=== PATIENT | female | born 1940 | race Caucasian/White ===

== ENCOUNTER 2019-12-15 13:29 | Emergency (ER) | payer MEDICARE, SELFPAY ==
[2019-12-15] VITALS (7 sets, daily range): BP systolic 95–147; BP diastolic 41–75; PULSE 55–72; RESP 18–20; TEMP 36.5–36.6; O2SAT 96–99; BMI 31.1
--- NOTE | 2019-12-15 13:41 | CT_ITS ---
EXAMINATION: CT BRAIN, CT CERVICAL SPINE WITHOUT CONTRAST. LEFT WRIST X-RAY CLINICAL INFORMATION: Banuelos injury. Fall. COMPARISON: None TECHNIQUE: 5 mm thin axial and reformatted 2 mm thin coronal and sagittal images of brain were obtained. Subsequently axial 3 mm thin and reformatted 2 mm thin sagittal images of cervical spine were obtained. DL [id number] FINDINGS: Brain: There is no acute intra-axial, extra-axial bleed, masses, collection or midline shift. The lateral ventricles are symmetrical in size and configuration without enlargement. The yo to white matter differentiation is preserved. There is dystrophic bibasilar ganglia calcification. The yo to white matter differentiation is preserved. The lateral ventricles are symmetrical in size and not enlarged. There is dystrophic anterior falx calcification. Bone windows reveal no calvarial abnormality. There is no scalp soft tissue abnormality. Bilateral paranasal sinuses and mastoid air cells are well-aerated. Cervical spine: There is mild straightening of cervical lordosis. The vertebral heights and alignment are normal. There is loss of C3-C4, C4-C5, C5-C6 and C6-C7 disc heights with ventral spondylosis. No lytic or sclerotic process. There is a hypertrophic changes left C1-C2 facet joint. There is moderate left C3-C4, bilateral C4-C5, C5-C6 and C6-C7 narrowing of neural foramina from uncovertebral hypertrophic changes. There is bilateral mild facet joint arthropathy on the left at these disc levels. No visible acute fracture, dislocation or lytic process seen. The prevertebral soft tissues are normal. Left wrist: There is a impacted fracture distal radius with dorsal angulation no additional fractures seen. There is minimal dorsal wrist soft tissue swelling. CT/CT cervical spine wo con IMPRESSION: No acute intracranial process seen. Degenerative disc changes C3-C4 through C6-C7 disc levels. No visible acute fracture or dislocation seen in cervical spine. Neuroforaminal narrowing from uncovertebral hypertrophic changes as described above. Impacted dorsally angulated fracture distal radius with mild soft tissue swelling.
[2019-12-15] MEDS: fentaNYL citrate/PF 100 MCG/2 ML VIAL 50 MCG IVPUSH (14:00)
[2019-12-15] MEDS: 0.9 % Sodium Chloride 500 ML 999 ML IVCONT (14:00)
--- NOTE | 2019-12-15 14:02 | ED.FALL ---
HPI - Fall General Chief Complaint: Fall Stated Complaint: fall outside w/head strike & l wrist deform,+collr Time Seen by Provider: 12/15/19 13:33 Source: patient Mode of arrival: EMS Limitations: no limitations History of Present Illness HPI Narrative: patient comes to the emergency room complaining of left wrist pain. Patient states earlier today she was walking towards her car, she had a mechanical fall, landed with all her weight on an outstretched hand on the left side, patient states the initial impact was on her hand, then she landed on her butt, then her back and lastly her head. Patient states she mildly bumped her head on the floor, did not lose consciousness, no neck pain and headache MD complaint: fall Related Data Previous Rx's Medication Instructions Recorded oxycodone-acetaminophen [Percocet] 1 tab PO TID PRN #7 tab 12/15/19 Allergies Allergy/AdvReac Type Severity Reaction Status Date / Time Penicillins [PENICILLINS] Allergy Severe ANAPHYLAXIS Verified 12/15/19 13:45 latex [LATEX] Allergy Unknown UNKNOWN Verified 12/15/19 13:45 ibuprofen [From Motrin] Allergy Swelling Verified 12/15/19 13:45 Review of Systems Review of Systems: Constitutional : No Weight loss, No Fever, No Chills, No Night Sweats, No Fatigue, No Malaise ENT/Mouth : No Hearing loss, No Ear Pain, No Nasal Congestion, No Sinus Pain, No Hoarseness, No sore throat, No Rhinorrhea, No Swallowing Difficulty Eyes: No Eye Pain, No Swelling, No Redness, No Foreign Body, No Discharge, No Vision Changes Cardiovascular : No Chest Pain, No SOB, No Dyspnea on Exertion, No Orthopnea, No Edema, No Palpitations Respiratory : No Cough, No Sputum, No Wheezing, No Smoke Exposure, No Dyspnea Gastrointestinal : No Nausea, No Vomiting, No Diarrhea, No Constipation, No abdominal Pain, No Hematochezia, No Melena Genitourinary : no irregular bleeding, No Dysuria, No Urinary Frequency, No Hematuria, No Urinary Incontinence, No Urgency, No Flank Pain, No Urinary Flow Changes, No Hesitancy Musculoskeletal : complaining of 10/10 pain, wrist pain left side Skin : No Skin Lesions, No rash Neuro : No Weakness, No Numbness, No Paresthesias, No Loss of Consciousness, No Dizziness, No Headache Psych : No Anxiety/Panic, No Depression, No SI/HI/AH/VH, No Social Issues, Heme/Lymph: No Bruising, No Bleeding,No Lymphadenopathy Endocrine : No Polyuria, No Polydipsia, No Temperature Intolerance [facility] Past Medical History Medical History Arthritis HTN (hypertension) Psoriasis Surgical History H/O shoulder surgery History of right knee joint replacement Social History Social History Alcohol intake: never Smoked in Last 30 Days: No Use of substances other than those prescribed or required for medical reasons: No Advance Directives: No Advance Directives Information Provided: No Physical Exam Vital Signs: Vital Signs: Vital Signs Temp Pulse Resp BP Pulse Ox 12/15/19 16:02 97.8 F 63 18 139/57 L 96 12/15/19 16:00 18 12/15/19 14:00 18 12/15/19 13:35 97.7 F 55 20 95/41 L 96 Body Mass Index 31.1 Appearance: Alert. Oriented X3. No acute distress. Eyes: Pupils equal, round and reactive to light. ENT: Pharynx normal. Neck: Normal inspection. Neck supple. No lymph nodes noted. No crepitus CVS: Normal heart rate and rhythm. Pulses normal. Normal S1 and S2 Respiratory: No respiratory distress. Breath sounds normal. No Wheezing. No rales Abdomen: Soft and nontender. No rigidity. No distention. good BS x4 Skin: Skin warm and dry. Normal skin color. Normal skin turgor. Extremities: patient has a deformity in the left wrist, mild swelling, pain to palpation. Neuro: Oriented X 3. No motor deficit. No sensory deficit. Moving all extermities. No slurred speech. Course Course Course Narrative: I discuss the x-ray with Dr. Ramon, at this time the fracture does not seem to be surgical, but with reduction we will try to improve the alignment. patient's wrist was infiltrated with 2% lidocaine, 4 hematoma block, successful block, pain greatly reduced. The left wrist was reduced Patient's pain is controlled now, I discussed with the patient getting a case management and PT consult for short-term rehab, patient declined, patient requesting a case management phone call in the morning. Patient states she lives alone but she has self sufficient, has good neighbors who take care of her. - Fall Lab Data Result diagrams: 12/15/19 14:33 12/15/19 14:33 Labs: Lab Results 12/15/19 12/15/19 12/15/19 Range/Units 14:33 14:33 14:33 WBC 9.2 (4.8-10.8) X10*3/uL RBC 3.77 L (4.20-5.50) X10*6/uL Hgb 12.6 (12.0-16.0) g/dl Hct 37.0 (37-47) % MCV 98.1 H (80-98) fL MCH 33.4 H (27.0-33.0) pg MCHC 34.1 (31.0-35.0) g/dl RDW 11.9 (11.0-16.0) % Plt Count 301 (160-400) X10*3/uL MPV 11.0 (9.4-12.3) fL Immature Gran % (Auto) 0.9 H (0.0-0.4) % Neut % (Auto) 60.0 (45-73) % Lymph % (Auto) 27.5 (20-40) % [place] % (Auto) 7.2 (2-11) % Eos % (Auto) 3.4 (0-4) % Baso % (Auto) 1.0 (0-2) % Lymph # (Auto) 2.5 (1.2-4.9) X10*3/uL [place] # (Auto) 0.7 (0.1-1.2) X10*3/uL Eos # (Auto) 0.3 (0.0-0.4) X10*3/uL Baso # (Auto) 0.1 (0.0-0.2) X10*3/uL Abs Immat Gran (auto) 0.08 H (0.00-0.03) X10*3/uL Absolute Neuts (auto) 5.5 (2.0-8.3) X10*3/uL Absolute Nucleated RBC 0.000 (0.0-0.012) X10*3/uL Nucleated RBC % (auto) 0.0 (0.0-0.2) /100WBC Hold Blue Top SEE NOTE Sodium 142 (135-145) mmol/L Potassium 4.5 (3.3-5.1) mmol/l Chloride 105 (96-108) mmol/L Carbon Dioxide 25 (22-29) mmol/L Anion Gap 17 (12-20) BUN 13 (9-16) mg/dL Creatinine 0.76 (0.5-1.4) mg/dL Estim Creat Clear Calc 59.6 Estimated GFR > 60 Random Glucose 164 H (60-115) mg/dL Calcium 9.2 (8.4-10.2) mg/dL Total Bilirubin 0.6 (0.0-1.0) mg/dL AST 20 (5-31) U/L ALT 17 (0-31) U/L Alkaline Phosphatase 58 (39-117) U/L Total Protein 6.9 (6.5-8.0) g/dL Albumin 4.1 (3.5-5.0) g/dL Imaging Data Head and neck CT, left wrist x-ray: Radiologist's impression: No acute intracranial process seen. Degenerative disc changes C3-C4 through C6-C7 disc levels. No visible acute fracture or dislocation seen in cervical spine. Neuroforaminal narrowing from uncovertebral hypertrophic changes as described above. Impacted dorsally angulated fracture distal radius with mild soft tissue swelling. wrist x-ray post reduction, alignment since improved, radiology read pending. Elbow x-ray are no acute fractures seen, radiology read pending radiology impression: 1. The wrist fracture is now in cast. Dorsal angulation of the distal radial metaphyseal fracture is slightly improved but still persists. 2. Degenerative changes involving the radiohumeral joint. Discharge Plan Discharge Clinical Impression: Fracture of wrist Qualifiers: Encounter type: initial encounter Fracture type: closed Laterality: left Qualified Code(s): S62.102A - Fracture of unspecified carpal bone, left wrist, initial encounter for closed fracture Patient Disposition: Home, Self-Care Instructions: Wrist Fracture in Adults (ED) Additional Instructions: please call Orthopedics Monday to schedule an appointment Prescriptions: New oxycodone-acetaminophen [Percocet] 5-325 mg tablet 1 tab PO TID PRN (Reason: pain) Qty: 7 RF: 0
--- NOTE | 2019-12-15 14:08 | PC.NURSE ---
patient a&ox3, iv inserted, medicated per order pt to ct scan
[2019-12-15 14:40] LABS: MANUAL DIFF FLAG NO
[2019-12-15 14:48] LABS: Basophils Absolute Auto 0.1 X10*3/uL (0.0-0.2); Eosinophils Absolute Auto 0.3 X10*3/uL (0.0-0.4); Eosinophils Percent Auto 3.4 % (0-4); Hemoglobin 12.6 g/dl (12.0-16.0); Imm Gran Abs Auto 0.08 X10*3/uL (0.00-0.03); Imm Gran Pct Auto 0.9 % (0.0-0.4); Lymphocytes Absolute Auto 2.5 X10*3/uL (1.2-4.9); Lymphocytes Percent Auto 27.5 % (20-40); Mean Corpuscular HGB Conc 34.1 g/dl (31.0-35.0); Mean Corpuscular Hemoglobin 33.4 pg (27.0-33.0); Mean Corpuscular Volume 98.1 fL (80-98); Monocytes Absolute Auto 0.7 X10*3/uL (0.1-1.2); Monocytes Percent Auto 7.2 % (2-11); Neutrophils Absolute Auto 5.5 X10*3/uL (2.0-8.3); Platelet Count 301 X10*3/uL (160-400); Red Blood Count 3.77 X10*6/uL (4.20-5.50); Red Cell Distribution Width 11.9 % (11.0-16.0); White Blood Count 9.2 X10*3/uL (4.8-10.8)
[2019-12-15 15:16] LABS: Alanine Aminotransferase 17 U/L (0-31); Albumin Level 4.1 g/dL (3.5-5.0); Alkaline Phosphatase 58 U/L (39-117); Anion Gap 17 (12-20); Aspartate Amino Transferase 20 U/L (5-31); Bilirubin Total 0.6 mg/dL (0.0-1.0); Blood Urea Nitrogen 13 mg/dL (9-16); Calcium 9.2 mg/dL (8.4-10.2); Carbon Dioxide 25 mmol/L (22-29); Chloride 105 mmol/L (96-108); Creatinine Clr Calc Pharmacy 59.6; Estimated Glomerular Filt Rate > 60; Glucose Random 164 mg/dL (60-115); Potassium 4.5 mmol/l (3.3-5.1); Sodium 142 mmol/L (135-145); Total Protein 6.9 g/dL (6.5-8.0)
[2019-12-15] MEDS: 0.9 % Sodium Chloride 1,000 ML 999 ML IVCONT (15:20)
[2019-12-15] MEDS: Lidocaine HCl 2 % MPF 5 ML VIAL 20 ML INFILTRATI (15:20)
--- NOTE | 2019-12-15 15:32 | PC.NURSE ---
lidocaine injected by physician into patients wrist/arm, reduction was performed, patient being splinted by tech, patient has tolerated procedure well. ivf running per order.
--- NOTE | 2019-12-15 15:34 | XR_ITS ---
EXAMINATION: LEFT WRIST AND ELBOW CLINICAL INFORMATION: Status post reduction COMPARISON: Radiographs earlier today TECHNIQUE: 3 views left elbow, 2 views left wrist FINDINGS: Wrist: Again seen is the transverse fracture through the distal radial metaphysis there is slight impaction and mild dorsal angulation,. The degree of angulation is improved when compared to the prior study. Some detail is obscured by the plaster cast. No other fractures are seen. Elbow some marked degenerative changes are present at the radial humeral joint. There are moderate osteophytes along with some osteophytes arising from the distal humerus. No fractures are seen. XR/XR wrist LT min 3V IMPRESSION: 1. The wrist fracture is now in cast. Dorsal angulation of the distal radial metaphyseal fracture is slightly improved but still persists. 2. Degenerative changes involving the radiohumeral joint.
--- NOTE | 2019-12-15 15:35 | XR_ITS ---
EXAMINATION: LEFT WRIST AND ELBOW CLINICAL INFORMATION: Status post reduction COMPARISON: Radiographs earlier today TECHNIQUE: 3 views left elbow, 2 views left wrist FINDINGS: Wrist: Again seen is the transverse fracture through the distal radial metaphysis there is slight impaction and mild dorsal angulation,. The degree of angulation is improved when compared to the prior study. Some detail is obscured by the plaster cast. No other fractures are seen. Elbow some marked degenerative changes are present at the radial humeral joint. There are moderate osteophytes along with some osteophytes arising from the distal humerus. No fractures are seen. XR/XR elbow LT min 3V IMPRESSION: 1. The wrist fracture is now in cast. Dorsal angulation of the distal radial metaphyseal fracture is slightly improved but still persists. 2. Degenerative changes involving the radiohumeral joint.
[2019-12-15] MEDS: HYDROmorphone HCl 1 MG/ML SYRINGE 0.6 MG IVPUSH (16:00)
--- NOTE | 2019-12-15 18:49 | PC.NURSE ---
patient a&ox3, vss, assisted patient ambulating to bathroom, patient needs assistance with clothing to use bathroom, patient continues to have pain in LUE- provider notified, patient is able to move fingers they are pink/warm, pt med req was updated- pt states there is 1 other pill she takes but is unable to remember it at this time, notified provider to put in diet as well, vss, will continue to monitor.
[2019-12-15] MEDS: oxyCODONE HCl Immed Release 5 MG TABLET PO (18:55)
--- NOTE | 2019-12-15 18:56 | PC.NURSE ---
patient medicated for pain per order
--- NOTE | 2019-12-15 20:41 | PC.NURSE ---
patient a&ox3 vss pt states her pain continues to be 10/10 in lue and that the po medication didnt touch it, will notify provider
[2019-12-15] MEDS: HYDROmorphone HCl 1 MG/ML SYRINGE 0.5 MG IVPUSH (21:08)
--- NOTE | 2019-12-15 21:08 | PC.NURSE ---
patiet medicated for 10/10 lue pain
[2019-12-15] MEDS: diphenhydrAMINE HCL 50 MG/ML VIAL IVPUSH (23:04)
--- NOTE | 2019-12-15 23:10 | PC.NURSE ---
Pt medicated with 50mg of benedryl for sleep. Pt was requesting Ambien and was educated that the provider felt uncomfortable ordering ambien after she had had dilaudid. Pt verbalized understanding.
[2019-12-16 02:00] VITALS: RESP 17
--- NOTE | 2019-12-16 05:38 | PC.NURSE ---
Pt noted to be sleeping at this time, resp reg and even. Skin pwd, NAD. Awaiting PT eval this morning for possible rehab placement. Has been up to ambulate to bathroom with steady gait and 1 assist at times. Pt requires assistance pulling down her pants and pulling them back up.
[2019-12-16 05:40] VITALS: RESP 16
[2019-12-16] MEDS: Acetaminophen 325 MG TABLET 650 MG PO (08:00)
[2019-12-16 08:01] VITALS: BP 145/68; PULSE 74
[2019-12-16] MEDS: lisinopriL 10 MG TABLET PO (08:01)
--- NOTE | 2019-12-16 08:02 | PC.NURSE ---
PT WAS EVAL BY PT SHE IS ABLE T O GET OOB AND AMBULATE WITH A STEADY SAFE GAIT FOR HOUSEHOLD DISTANCES PT EATING AND DRINKING SHE WAS MEDICATED FOR PAIN
[2019-12-16 08:04] VITALS: BP 145/68; PULSE 75; RESP 18; O2SAT 97
--- NOTE | 2019-12-16 09:26 | PC.NURSE ---
PT SLEEPING QUIETLY
--- NOTE | 2019-12-16 10:03 | MHC.CM.ED ---
Received case management consult overnight. Patient came to ER due to fall. Found to have left wrist fracture. Physical therapy eval completed. Home therapy is recommended. Met with patient in regards to d/c planning. Patient lives alone, ambulates indepedendently and has services through [facility]. Patient has been active with [facility] in the past and is agreeable to referral there. Referral made via [employer]. Face to face completed and signed. Patient has no tranpsortation home at this time and is agreeable to private pay chair van. Action chair van ordered through [employer] for next available. Patient, Dr Marquis and Ander PAUL aware. Continue to monitor for d/c needs.
--- NOTE | 2019-12-16 10:10 | PC.NURSE ---
sling placed left arm
== END 2019-12-16 10:37 | disposition home or self-care (01) ==
PROVIDERS: Emergency Provider Emergency Medicine; PCP Internal Medicine
DX: S62.102A Fracture of unspecified carpal bone, left wrist, initial encounter for closed fracture (principal); M25.532 Pain in left wrist; W01.0XXA Fall on same level from slipping, tripping and stumbling without subsequent striking against object, initial encounter; Y93.01 Activity, walking, marching and hiking; Y92.009 Unspecified place in unspecified non-institutional (private) residence as the place of occurrence of the external cause; Y99.9 Unspecified external cause status
CPT/HCPCS: 36415; 70450; 72125; 73080; 73110; 80053; 85025; 96361; 96372; 96374; 96375; 96376; 97161; 99284; 99285; J1170; J1200; J3010

== ENCOUNTER → 2019-12-19 09:41 | Outpatient (BNVA) | payer MEDICARE, SELFPAY | PROVIDERS: PCP Internal Medicine; Visit Provider Physician Assistant | DX: S52.502D Unspecified fracture of the lower end of left radius, subsequent encounter for closed fracture with routine healing (principal) | CPT/HCPCS: 99202 ==

== ENCOUNTER 2019-12-24 08:54 | Day surgery (SDC) | payer MEDICARE, SELFPAY ==
--- NOTE | 2019-12-23 08:31 | HO.ANESPROP2 ---
Documented by User: Dinah Mirlande 12/23/19 08:32 HPI - Anesthesia Eval Consult details Narrative: 79yp F for Radius Distal Fracture ORIF, left PMFSH Past Medical History Medical History Arthritis HTN (hypertension) Psoriasis Surgical History Surgical History H/O shoulder surgery History of right knee joint replacement Social History Social History Alcohol intake: never Smoking Status: Never smoker Second Hand Smoke Exposure: No Use of substances other than those prescribed or required for medical reasons: No Advance Directives: No Advance Directives Information Provided: No Advance Directives on File: No Current occupational status: retired Current occupation: right handed Meds Allergies Allergy/AdvReac Type Severity Reaction Status Date / Time Penicillins [PENICILLINS] Allergy Severe ANAPHYLAXIS Verified 12/15/19 13:45 latex [LATEX] Allergy Unknown UNKNOWN Verified 12/15/19 13:45 ibuprofen [From Motrin] Allergy Swelling Verified 12/15/19 13:45 Home Medications Medication Instructions Recorded Confirmed Type lisinopril 10 mg PO DAILY 12/15/19 12/15/19 History paroxetine HCl [Paxil] 5 mg PO DAILY 12/15/19 12/15/19 History Exam Exam Date and Time: December 23, 2019 0831 Pertinent Lab Results Pertinent Lab Results: Laboratory Tests 12/15/19 12/15/19 14:33 14:33 WBC 9.2 Hgb 12.6 Hct 37.0 Plt Count 301 Sodium 142 Potassium 4.5 Chloride 105 BUN 13 Creatinine 0.76 Assessment and Plan Assessment Anesthesia Assessment: Chart Reviewed Documented by User: Sergio Washburn MD 12/24/19 13:13 PMFSH Past Medical History Medical History Arthritis HTN (hypertension) Psoriasis Surgical History Surgical History H/O shoulder surgery History of right knee joint replacement Social History Social History Alcohol intake: never Smoking Status: Never smoker Second Hand Smoke Exposure: No Use of substances other than those prescribed or required for medical reasons: No Advance Directives: No Advance Directives Information Provided: No Advance Directives on File: No Current occupational status: retired Current occupation: right handed Meds Allergies Allergy/AdvReac Type Severity Reaction Status Date / Time Penicillins [PENICILLINS] Allergy Severe ANAPHYLAXIS Verified 12/15/19 13:45 latex [LATEX] Allergy Unknown UNKNOWN Verified 12/15/19 13:45 ibuprofen [From Motrin] Allergy Swelling Verified 12/15/19 13:45 Home Medications Medication Instructions Recorded Confirmed Type lisinopril 10 mg PO DAILY 12/15/19 12/15/19 History paroxetine HCl [Paxil] 5 mg PO DAILY 12/15/19 12/15/19 History Exam Airway Mallampati Class: III TM Dist: >3cm Neck ROM: Full Denture: Upper and Lower Loose/Missing/Broken Teeth: No Heart: rrr, pvcs Lungs: nl Other: ao Assessment and Plan Assessment Anesthesia Assessment: Anesthesia Plan Discussed, PAT Visit and Chart Reviewed Final Anesthetic Review NPO: Yes ASA Class: III Final Preanesthetic Review: No Changes in Pt Med Stat, Meds/Allgs Chart Reviewed, Consent Obtained/Reviewed and Anes Risks/Benef Reviewed Patient Risk: Intermediate Procedure Risk: Intermediate Anesthetic Plan Anesthetic Plan: GA and Regional Block Disposition: Standard PACU
[2019-12-23 12:55] VITALS: BMI 31.1
[2019-12-24] VITALS (12 sets, daily range): BP systolic 143–167; BP diastolic 54–67; PULSE 75–88; RESP 16–18; TEMP 36.9–37.2; O2SAT 92–100
--- NOTE | 2019-12-24 09:18 | MHC.SHP ---
Pre-Procedural Eval Section A The patient is an INPATIENT: No Changes since office visit: Yes Patient answered all questions; No Cold of Flu in the past 2 weeks, No New Medical Problems and No Changes in Medication The History & Physical has been completed within 30 days and I have reviewed it.: Yes Section B Chief Complaint: left radial fx Allergies: Allergies Allergy/AdvReac Type Severity Reaction Status Date / Time Penicillins [PENICILLINS] Allergy Severe ANAPHYLAXIS Verified 12/15/19 13:45 latex [LATEX] Allergy Unknown UNKNOWN Verified 12/15/19 13:45 ibuprofen [From Motrin] Allergy Swelling Verified 12/15/19 13:45 Plan Patient has been examined and remains a candidate for the planned procedure
[2019-12-24] MEDS: Lactated Ringers 1,000 ML 100 ML IVCONT (10:34)
[2019-12-24] MEDS: Clindamycin Phosphate/D5W 600 MG/50 ML PIGGYBACK 100 MG IV (10:45)
--- NOTE | 2019-12-24 12:13 | FL_ITS ---
EXAMINATION: XR FLUOROSCOPY WITH IMAGES CLINICAL INFORMATION: Distal radius fracture COMPARISON: Previous x-ray 12/15/2019 TECHNIQUE: Fluoroscopy performed by Dr. Ramon. Fluoroscopy time: 0.4 minutes DAP: 0.9 mGycm2 Images: 2 FINDINGS: Fluoroscopic guidance was provided for ORIF of left distal radius fracture. There is a new volar plate and multiple screws transfixing the fracture with improved anatomic alignment. FL/FL guidance in OR IMPRESSION: Fluoroscopic guidance for ORIF of left distal radius fracture.
--- NOTE | 2019-12-24 13:28 | PM.OP ---
Brief Operative Note Date of procedure: 12/24/19 Pre-op diagnosis: left distal radius fracture Post-op diagnosis: same Procedure: ORIF left distal raidius fracture Implants: chavo Surgeon: Irwin Ramon MD Anesthesia: MAC and regional Estimated blood loss (mL): 10 Tourniquet time (min): 33 IV fluids (mL): 700 Pathology: none sent Condition: stable Disposition: PACU
[2019-12-24] MEDS: HYDROmorphone HCl 0.5 MG/0.5 ML SYRINGE 0.25 MG IVPUSH (14:13)
[2019-12-24] MEDS: Acetaminophen 325 MG TABLET 650 MG PO (14:46)
[2019-12-24] MEDS: oxyCODONE HCl Immed Release 5 MG TABLET PO (14:47)
--- NOTE | 2019-12-25 16:29 | OP_ITS ---
SURGEON: Irwin Ramon MD INDICATIONS: This is a healthy 79-year-old woman with a dorsally tilted and dorsally comminuted distal radius fracture, consented to undergo ORIF. PREOPERATIVE DIAGNOSIS: Left distal radius fracture. POSTOPERATIVE DIAGNOSIS: Left distal radius fracture. PROCEDURE PERFORMED: Open reduction internal fixation left distal radius. ESTIMATED BLOOD LOSS: COMPLICATIONS: None known. ANESTHESIA: LMA and regional. ASSISTANTS: SPECIMENS: BLOOD LOSS: 10 mL. PROCEDURE IN DETAIL: The patient was brought to the operating room, placed supine on the operative table, prepped and draped in standard sterile fashion. Time-out was called to identify proper site, proper procedure, proper surgeon. IV antibiotics per weight was administered. I began by insufflating tourniquet to 250 mmHg. I then made a standard incision over FCR. The FCR sheath was incised proximally. FCR was retracted ulnar and FPL sheath was incised. FPL was swept ulnar and pronator quadratus was dissected off the distal radius bluntly. I then visualized the extra-articular distal radius fracture. I used a [place] and was able to recreate a neutral tilt. The radial styloid K-wire was placed to provisionally hold this reduction and a narrow 3-hole distal radius locking plate was selected. Biplanar fluoroscopy was used to position the plate and screws were placed using standard AO technique and biplanar fluoroscopy. Once I was happy with the position of the styloid and radial screws, I removed the radial styloid K-wire and then placed my proximal cortical screw to reapproximate the tilt and to compress the plate to the bone. Once this was done, I was happy with the neutral tilt and the restorationist of height and inclination. I filled the remaining proximal nonlocking screws and then distal locking screws. Again, biplanar fluoroscopy was used to confirm fracture reduction and plate position. Once I was happy with this, all instrumentation was removed. Copious irrigation was performed. Layered closure was performed with skin glue and a volar splint. The patient was then extubated, brought to recovery room in stable condition. There were no known complications. FLUIDS: 700. TOURNIQUET TIME: 33 minutes. COOPERATIVE EXTENSION AGENT: ADRIANA Teixeira. Irwin Ramon MD NE/MODL / [id number]
== END 2019-12-24 16:07 | disposition home or self-care (01) ==
PROVIDERS: PCP Internal Medicine; Visit Provider Orthopaedic Surgery
PROC: (CPT 25607; principal; 2019-12-24 10:50)
DX: S52.502A Unspecified fracture of the lower end of left radius, initial encounter for closed fracture (principal); W01.0XXA Fall on same level from slipping, tripping and stumbling without subsequent striking against object, initial encounter; Y93.89 Activity, other specified; Y92.9 Unspecified place or not applicable; Y99.2 Volunteer activity; I10 Essential (primary) hypertension; M19.90 Unspecified osteoarthritis, unspecified site; L40.9 Psoriasis, unspecified; Z79.899 Other long term (current) drug therapy; Z96.651 Presence of right artificial knee joint; Z88.0 Allergy status to penicillin; Z88.8 Allergy status to other drugs, medicaments and biological substances
CPT/HCPCS: 25607; C1713; J1170; J3010

== ENCOUNTER → 2020-01-03 10:26 | Outpatient (BNVA) | payer MEDICARE, SELFPAY | PROVIDERS: PCP Internal Medicine; Visit Provider Physician Assistant | DX: S52.502D Unspecified fracture of the lower end of left radius, subsequent encounter for closed fracture with routine healing (principal) | CPT/HCPCS: 29075; 99212 ==

== ENCOUNTER 2020-01-13 10:38 | Outpatient (REF) | payer MEDICARE, SELFPAY ==
--- NOTE | 2020-01-13 10:39 | XR_ITS ---
EXAMINATION: XR WRIST, LEFT CLINICAL INFORMATION: Fracture COMPARISON: Previous x-ray most recent 12/15/2019 intraoperative fluoroscopic images 12/24/2019 TECHNIQUE: PA, lateral, and oblique views of the left wrist. FINDINGS: There is new orthopedic hardware with plate and screws transfixing the left distal radius fracture. Alignment is anatomic. Fracture line is still seen. There is arthritis at the first LONG-TERM joint. Bones appear osteopenic. There is a soft tissue swelling of the volar wrist and distal forearm. XR/XR wrist LT min 3V IMPRESSION: ORIF of left distal radius fracture.
== END 2020-01-13 10:39 | disposition home or self-care (01) ==
LOC: HO.HOSX 10:38
PROVIDERS: Visit Provider Physician Assistant
DX: S52.502D Unspecified fracture of the lower end of left radius, subsequent encounter for closed fracture with routine healing (principal)
CPT/HCPCS: 73110; 99212

== ENCOUNTER 2020-02-06 10:35 | Outpatient (REF) | payer MEDICARE, SELFPAY | END 2020-02-06 10:36 | disposition home or self-care (01) | LOC: HO.HOSX 10:35 | PROVIDERS: Visit Provider Physician Assistant | DX: Z13.89 Encounter for screening for other disorder (principal) ==

== ENCOUNTER 2020-02-10 08:39 | Outpatient (REF) | payer MEDICARE, SELFPAY ==
--- NOTE | 2020-02-10 09:55 | XR_ITS ---
EXAMINATION: XR WRIST, LEFT CLINICAL INFORMATION: Fracture distal left radius. COMPARISON: 01/13/2020 and 12/15/2019 TECHNIQUE: PA, lateral, and oblique views of the left wrist. FINDINGS: There is stable appearance in alignment status post placement of sideplate and screws for fixation of distal left radial fracture. There is neutral angulation of the radiocarpal joint. There appears to be some progression in healing with the fracture line still evident but showing signs of bony union. No dislocation is evident. There is degenerative change of the 1st carpometacarpal joint. XR/XR wrist LT min 3V IMPRESSION: Stable alignment with evidence for some progressive healing status post internal fixation of left distal radial fracture.
== END 2020-02-10 08:40 | disposition home or self-care (01) ==
LOC: HO.HOSX 08:39
PROVIDERS: Visit Provider Physician Assistant
DX: S52.502D Unspecified fracture of the lower end of left radius, subsequent encounter for closed fracture with routine healing (principal)
CPT/HCPCS: 73110; 99212

== ENCOUNTER 2020-02-17 10:00 | Outpatient (RCR) | payer MEDICARE, SELFPAY ==
--- NOTE | 2020-01-24 14:28 | MHC.OT.OEV ---
[address] [phone] F: [phone] Occupational Therapy Evaluation Diagnosis: Left Distal Radius Fx, post-op ORIF Date of Onset: 12/14/19 Date of Surgery: 12/25/19 Attending Provider: Mihai Giraldo PA-C Prescribed Treatment: Eval and Treat MD Follow Up Appointment: 01/04/20 History of Current Condition: Hilaria was looking in the back seat of her car, took a step back and fell backwards in the parking lot. Was brought to the ED and found to have left distal radius fracture. She was placed in splint and underwent ORIF w/ Dr Ramon 12/25/19. Cast has been removed today (01/13/20) and now in prefab removal orthosis. Significant Medical History: Precautions/Contraindications: Two weeks post-op ORIF Patient Goals: Decrease pain, return use of left hand Hand Dominance: Right Observations: Wearing pre-bairon orthsis QuickDASH Score: 43 Prior Level of Function and Occupation Self Care, Employment, Leisure: Independent, , retired, enjoys traveling w/ her son Living Situation, Family and/or Social Support: Lives alone, son lives nearby Current Level of Function and Occupation Self Care, Employment, Leisure: Difficulty w/ bimanual tasks or gripping objects Sleep: Lousy Driving: Driving short distances Vision: WFL, glasses Balance: Pain Assessment Pain Score: 3 Pain Scale Used: Numeric (0 - 10) Pain Location and Description: 3/10 resting pain 9/10 sharp pain, left wrist and thumb base Aggravating Factors: Gripping, sleeping Alleviating Factors: Codene w/ Tylenol as needed daily Skin and Soft Tissue Assessment Skin and Soft Tissue: Swelling Other Comments: Left forearm dry Steri-strips intact Nerve assessment Ulnar Nerve: WFL Median Nerve: WFL Radial Nerve: WFL Comments: Sensory Assessment Temperature: WFL Light Touch: WFL Proprioception: WFL Vibration: Comments: Edema Assessment Upper Extremity: Left Impaired Lower Extremity: Comments: R wrist 14.5 cm L wrist 16.0 cm Dexterity Assessment Dexterity: Left Impaired Comments: Nine Hole Peg R 25 sec L Special Tests Comments: AROM(PROM) Strength Cervical Cervical Flexion: Cervical Extension: Cervical Lateral Flexion: Cervical Rotation: Comments: Shoulder Flexion: B/L 0-90 w/ stiffness (hx of shoulder surgery) Extension: Abduction: Internal Rotation: External Rotation: Comments: Flexion: Extension: Abduction: Internal Rotation: External Rotation: Comments: Elbow Flexion: Extension: Pronation: Supination: Comments: Flexion: Extension: Pronation: R 80 L 55 Supination: R 85 L 35 Comments: Wrist Flexion: R 55 L 28 Extension: R 68 L 50 Ulnar Deviation: R 60 L 30 Radial Deviation: R 10 L 10 Comments: Flexion: Extension: Ulnar Deviation: Radial Deviation: Comments: Thumb Thumb CMC Flexion: Thumb MCP Flexion: Thumb IP Flexion: Radial Abduction: Palmar Abduction: [place] (K[place]andji 0-10): R 9 L 3 Comments: Digits Index MCP: PIP: DIP: Long MCP: PIP: DIP: Ring MCP: PIP: DIP: Small MCP: PIP: DIP: Comments: Full tip-palm B/L'ly, intrinsic tightness w/ left hook fist Gross Grasp: R 35 lb L NT Lateral Pinch: Two-Point Pinch: Three-Jaw [place]: Comments: Patient Education Primary Language: Bulgarian Steward/Stewardess Dining Room Required: No Current Knowledge: Understands information with skills for self-management Teaching Method: Demonstration Handouts Verbal Education Needs Identified on Evaluation: ADL's Disease Information Equipment Use Exercise Pain Safety How did patient/family demonstrate learning? Patient demonstrates Patient verbalizes Barriers to Learning: None Readiness for Learning: Accepting Who was educated? Patient Comments: Plan of Care Assessment: Hilaria presents about two weeks s/p ORIF of left distal radius after FOOSH injury one month ago. She has been placed in prefab orthosis and is able to do light activities w/ hand, but has difficulty w/ sleeping, bimanual activities and gripping w/ left hand. She will benefit from cont'd therapy services for optimal gains in ROM, strength and functional use of hand, while also focusing on pain and edema management. STG Duration: 2 weeks Short Term Goals: Ind w/ HEP Ind w/ scar massage Left wrist flex 40 degrees Left wrist ext 60 degrees Left wrist supination 50 degrees Left gross grasp 15lb LTG Duration: 6 weeks Master Fire Control Technician Goals: QuickDASH score <25 pts Pain free at rest <3/10 pain w/ moderate daily use Wrist ROM within 5 degrees of right Gross grasp >25lb Frequency and Duration: The patient will be seen 2-3 x/wk for 4-6 weeks Treatment Plan: Therapeutic Exercise Therapeutic Activity Home Exercise Program Splinting Patient Education Desensitization/Sensory Re-ed Edema Control ADL Training NMES MHP Cold Packs Joint Mobilization Soft Tissue Mobilization Kinesiotaping Electronically Signed By: ZUHAIR ANSARI OT CHT CLT Reviewed/agree with student documentation: N/A Therapist: Please sign and return to therapist, Thank you for your referral.
== END 2020-04-07 07:44 | disposition home or self-care (01) ==
LOC: HO.OT 10:00
PROVIDERS: Visit Provider Physician Assistant
DX: S52.502D Unspecified fracture of the lower end of left radius, subsequent encounter for closed fracture with routine healing (principal)
CPT/HCPCS: 97110; 97165; 97530; 97760

== ENCOUNTER → 2020-03-16 13:48 | Outpatient (BNVA) | payer MEDICARE, SELFPAY | PROVIDERS: Visit Provider Physician Assistant | DX: S52.502D Unspecified fracture of the lower end of left radius, subsequent encounter for closed fracture with routine healing (principal) | CPT/HCPCS: 99212 ==

== ENCOUNTER 2020-07-31 09:53 | Outpatient (REF) | payer MEDICARE, SELFPAY ==
--- NOTE | 2020-07-31 11:11 | MHC.AU.ANR ---
Adult Audiological Evaluation Date of Visit: 07/31/20 Reason for Appointment: Audiological evaluation due to concern for decreased hearing. Patient notes that her hearing has gradually been decreasing. She notes particular difficulty in background noise and feels people mumble. Does patient feel they have a hearing loss?: Yes If Yes, Which Ear?: Both Ears When Was Hearing Difficulty First Noticed?: a few years ago Has hearing been tested previously?: No Previous Hearing Test Results: Hearing Handicap Inventory: HHIE SCORE: 26 Based on HHIE score, patient has: Severe perceived hearing handicap Ear History: Recent Ear Infections: Infection in left ear in March 2020 History of Ear Wax Buildup: Both Ears Medical History: Medical History: High Blood Pressure Otoscopy: Right Ear: Significant wax build up removed with a lighted curette without incident Left Ear: Significant wax build up removed with a lighted curette without incident Tympanometry: Tympanometry performed due to: To determine if cerumen blockage is fully occluding canal(s) Right Ear: Normal Middle Ear System (Type A) Left Ear: Normal Middle Ear System (Type A) Hearing Evaluation: Transducer(s) Used: Insert Earphones, Bone Conduction Method: Conventional Audiometry Stimuli Used: Pure Tones Right Ear: Description of Hearing: Mild sloping to moderately severe sensorineural hearing loss from 250-8000 Hz. Left Ear: Description of Hearing: Mild sloping to moderately severe sensorineural hearing loss from 250-8000 Hz. Speech Recognition Threshold (SRT): Method Used: Monitored Live Voice Stimuli Used: Spondee Words Right Ear: 35 dBHL Left Ear: 30 dBHL Word Discrimination: Method: Recorded Lists Word Lists Used: NU-6 Right Ear: 92% at 75 dBHL Left Ear: 100% at 70 dBHL Recommendations: Audiological re-evaluation in one year. Trial with amplification is recommended. Briefly discussed hearing aids. Advised patient that she should contact her health insurance company to see if she has any hearing aid benefits. Recommended that she schedule a hearing aid evaluation if she decides she would like to pursue hearing aids through our clinic. Diagnosis: Primary Diagnosis: H90.3 Bilateral Sensorineural Hearing Loss Services Performed: Comprehensive Audiological Evaluation (CPT 08664) Tympanometry (CPT 07690) Signature: Provider: Krysta Ascencio, CCC-A
== END 2020-07-31 09:54 | disposition home or self-care (01) ==
LOC: HO.SH 09:53
PROVIDERS: Visit Provider Physician Assistant Medical
DX: H90.3 Sensorineural hearing loss, bilateral (principal)
CPT/HCPCS: 92557; 92567

== ENCOUNTER 2020-07-31 10:54 | Outpatient (REF) | payer SELFPAY | END 2020-07-31 10:55 | disposition home or self-care (01) | LOC: HO.HAP 10:54 | PROVIDERS: Visit Provider Internal Medicine | DX: H90.3 Sensorineural hearing loss, bilateral (principal); H61.23 Impacted cerumen, bilateral | CPT/HCPCS: 92700 ==

== ENCOUNTER → 2021-11-09 08:05 | Outpatient (BNVA) | payer MEDICARE, SELFPAY | PROVIDERS: PCP Physician Assistant Medical; Visit Provider Internal Medicine Rheumatology | DX: L40.50 Arthropathic psoriasis, unspecified (principal); M81.0 Age-related osteoporosis without current pathological fracture; M47.816 Spondylosis without myelopathy or radiculopathy, lumbar region; M17.12 Unilateral primary osteoarthritis, left knee | CPT/HCPCS: 20610; 99212 ==

== ENCOUNTER 2022-01-11 11:30 | Outpatient (REF) | payer MEDICARE, SELFPAY ==
[2022-01-11 12:44] LABS: Alanine Aminotransferase 14 U/L (0-31); Albumin Level 4.4 g/dL (3.5-5.0); Alkaline Phosphatase 66 U/L (39-117); Anion Gap 15 (12-20); Aspartate Amino Transferase 18 U/L (5-31); Bilirubin Total 0.7 mg/dL (0.0-1.0); Blood Urea Nitrogen 12 mg/dL (9-16); Calcium 9.4 mg/dL (8.4-10.2); Carbon Dioxide 27 mmol/L (22-29); Chloride 103 mmol/L (96-108); Estimated Glomerular Filt Rate > 60; Glucose Random 184 mg/dL (60-115); Potassium 4.3 mmol/L (3.3-5.1); Sodium 141 mmol/L (135-145); Total Protein 7.4 g/dL (6.5-8.0)
[2022-01-17 15:12] LABS: Vitamin D 25-OH, D2 <4 ng/mL; Vitamin D 25-OH, D3 35 ng/mL; Vitamin D 25-OH, Total 35 ng/mL (30-100)
== END 2022-01-11 11:31 | disposition home or self-care (01) ==
LOC: HO.LAB 11:30
PROVIDERS: PCP Physician Assistant Medical; Visit Provider Internal Medicine Rheumatology
DX: M81.0 Age-related osteoporosis without current pathological fracture (principal)
CPT/HCPCS: 36415; 80053; 82306

== ENCOUNTER 2022-02-28 10:16 | Outpatient (REF) | payer MEDICARE, SELFPAY ==
[2022-02-28 11:35] LABS: Anion Gap 12 (12-20); Blood Urea Nitrogen 12 mg/dL (9-16); Calcium 9.8 mg/dL (8.4-10.2); Carbon Dioxide 28 mmol/L (22-29); Chloride 103 mmol/L (96-108); Estimated Glomerular Filt Rate > 60; Glucose Random 132 mg/dL (60-115); Potassium 4.4 mmol/L (3.3-5.1); Sodium 139 mmol/L (135-145)
== END 2022-02-28 10:17 | disposition home or self-care (01) ==
LOC: HO.LAB 10:16
PROVIDERS: Visit Provider Internal Medicine Rheumatology
DX: M81.0 Age-related osteoporosis without current pathological fracture (principal); I10 Essential (primary) hypertension
CPT/HCPCS: 36415; 80048

== ENCOUNTER 2022-03-01 10:01 | Outpatient (REF) | payer MEDICARE, SELFPAY | END 2022-03-01 10:02 | disposition home or self-care (01) | LOC: HO.MDS 10:01 | PROVIDERS: Visit Provider Internal Medicine Rheumatology | DX: M81.0 Age-related osteoporosis without current pathological fracture (principal) | CPT/HCPCS: 96365 ==

== ENCOUNTER 2023-01-10 09:58 | Outpatient (AMB) | payer MEDICARE, SELFPAY ==
--- NOTE | 2023-01-10 10:00 | A.OFFVIS_ITS ---
Intake Vital Signs 01/10/23 10:01 Height 5 ft 3 in Weight 161 lb 13.109 oz BMI 28.7 BP 142/90 H Blood Pressure Location Rt brachial Position Sitting Pulse 96 Pulse Source Pulse Oximeter Temp 97 F Temp Source Skin Pulse Oximetry (%) 99 Oxygen Delivery Method Room Air Intake Visit Reasons: PSA Intake Note: Patient presents today to follow up on PsA. Last seen by Dr. Cummings on 11/09/21. Last Reclast infusion Feb, 2022. Due in February. Concerned that Reclast is not lasting enough in her system. c/o neck pain, worsening joint pains c/o right buttocks pain x 2 months, then radiated to left side and down the leg. Web Specialist Required: No Accompanied by: Self / Same As Patient Allergies Penicillins [PENICILLINS] Allergy (Severe, Verified 01/28/22 11:26) ANAPHYLAXIS latex [LATEX] Allergy (Unknown, Verified 01/28/22 11:26) UNKNOWN ibuprofen [From Motrin] Allergy (Verified 01/28/22 11:26) Swelling Medication List - Last Reconciled 01/10/23 by Joseph Cummings MD amlodipine 5 mg PO DAILY azelastine 0.05% 1 drp ophthalmic (eye) BID PRN fluticasone propionate 50 mcg/actuation sprays intranasal lisinopril 30 mg PO DAILY oxycodone-acetaminophen 10-325 mg 1 tab PO QID PRN paroxetine HCl 20 mg PO DAILY secukinumab mg subcut Q4W triamcinolone acetonide 0.025% appl topical zoledronic senh-kodpujfu-xuxzl 5 mg/100 mL 5 mg intravenously once; to be given at outpatient infusion, [facility] zolpidem 5 mg PO BEDTIME PRN HPI HPI Comments History of Present Illness Details The patient returns for evaluation of her osteoporosis, psoriasis, and osteoarthritis. She remains on Cosentyx through Dermatology for her psoriasis. She continues with various joint pains including the lower back radiating to the right buttock and thigh. That pain is worse with prolonged sitting or standing. She had received 3 doses of zoledronic acid over the last 4 years. There have been no recent fractures. She is having some left knee pain as well that was helped with a corticosteroid injection given last fall. [facility] Medical History Arthritis HTN (hypertension) Psoriasis Surgical History History of right knee joint replacement H/O shoulder surgery Household Members Other:: lives alone Housing: Apartment Do you presently have visiting nurse or other home services: Yes (once a week) Alcohol intake: current Alcohol intake frequency: holidays/special occasions only Alcohol type: hard liquor Patient Tobacco Use Status: Never used Tobacco e-Cigarette/Vaping Use: Never Used Second Hand Smoke Exposure: No service: No Current occupational status: retired Current occupation: right handed Review of Systems Const Details: Negative for appetite change, weight change, fever, chills, malaise and fatigue Eyes Details: Negative for vision change, dry eyes,headaches and dizziness ENT Details: Negative for hearing change, tinnitus, oral ulcer, nose bleeds and oral dryness. Card Details: Negative chest pain, edema and syncope Resp Details: Negative for SOB, cough and wheezing GI Details: Negative indigestion/heartburn, nausea, abdominal pain, bowel changes, diarrhea, constipation and bloody stool. Skin/Breast Details: Negative for itching, rash, hives, Raynaud's symptoms, sun sensitivity, and skin cancer Endo Details: Negative for polyuria and polydypsia Garry/Lymph Details: Negative for excessive bruising or bleeding. Physical Exam Vital Signs: Last Vital Signs Temp 97 F 01/10/23 10:01 Pulse 96 01/10/23 10:01 BP 142/90 H 01/10/23 10:01 Pulse Ox 99 01/10/23 10:01 Oxygen Delivery Method Room Air 01/10/23 10:01 BMI result Body Mass Index 28.7 APPEARANCE: Patient in no acute distress EXTREMITIES: No edema, no calf tenderness, normal peripheral pulses. NEURO: Oriented and alert x3. No focal weakness. Reflexes symmetric. Gait normal. SKIN: There may be a few actinic keratoses evident on the forearms but no active psoriasis is seen. The nails in the toes and fingers look normal. JOINT EXAM:.?? Cervical Spine: Mild pain with lateral flexion at 10 degrees of rotation at 30 degrees to either side. There is some cervical muscle tenderness. Thoracic Spine:.? No scoliosis.? No tenderness on palpation. Lumbar Spine:.? Alignment normal.? Mild pain with extremes of flexion or extension. Straight leg raising on the right causes some buttock and thigh pain at about 45 degrees. No tenderness. Chest Wall:.? No tenderness, swelling, increased warmth or erythema. Hands: There is pain-free range of motion of the joints. This some slight bony enlargement at the PIP joints but these are minimally tender. There is no thenar atrophy or sensory loss.? Normal pain-free range of motion without tenderness, swelling, increased warmth or erythema. Wrists: Right: Slight tenderness over the dorsum of the wrist with some mild pain at 60 degrees flexion extension but no redness or warmth. Left: Mild pain with flexion extension is 75 degrees. No swelling or tenderness. Elbows:. Normal pain-free range of motion without tenderness, swelling, increased warmth or erythema. Shoulders:.??Right: Mild pain with abduction at 90 degrees or any attempt at internal or external rotation. Passive motion is limited to about 135 degrees of abduction. There is some abductor weakness but no adenopathy or swelling. Mild anterior and posterior tenderness. Left: Mild pain with abduction 75 degrees. Passive motion is limited to about 100 degrees. There is mild anterior tenderness without abductor weakness but no adenopathy, weakness, swelling, increased warmth or erythema. Hips:? Full range of motion without pain. Hip bursa:.? No tenderness. Knees:.? Right: She has good range of motion without pain and a well-healed anterior scar from her knee replacement. There is no areas of tenderness or swelling.? Left: There is valgus deformity and slight pain with extremes of flexion or extension. There is mild patellofemoral crepitus, mild to moderate medial tenderness without redness or effusion. There is no popliteal swelling or tenderness. Ankles: Left: There is some valgus deformity at the ankle with some mild medial tenderness in questionable soft tissue swelling although some of this could be related to the valgus deformity. She has mild pain with extremes of inversion and eversion but AP motion is pain-free. There is no redness or warmth.? Right: Normal pain-free range of motion without tenderness, swelling, increased warmth or erythema. Feet: Left: There is flatfoot deformity in valgus in the foot. There is mild tenderness at the 1st MTP joint with moderate hallux valgus deformity and mild tenderness. There is also some slight tenderness over the 5th toe where she has a hammertoe deformity. No soft tissue swelling, redness or warmth. Right: Hallux valgus deformity and mild tenderness at the 1st MTP joint elsewhere there is normal pain-free range of motion without tenderness, swelling, increased warmth or erythema. Tender points:? No tenderness to digital palpation at the occiput, trapezius, second rib, lateral epicondyle, knees, greater trochanter and gluteal area bilaterally. ? Results Reviewed Results Reviewed: Laboratory Tests 12/15/19 01/11/22 02/28/22 14:33 11:38 10:31 Hgb 12.6 Creatinine 0.67 25-Hydroxy Vitamin D3 35 Assessment & Plan Assessment & Plan (1) Osteoarthritis of left knee: Code(s): M17.12 - Unilateral primary osteoarthritis, left knee (2) Osteoporosis: Comment: Started Fosamax 04/2018 - gi side effects so it was stopped Zoledronic acid 09/2018; 03/2020; 02/2022 Code(s): M81.0 - Age-related osteoporosis without current pathological fracture (3) Psoriasis: Comment: Humira - stopped - ? due to infection Tremfya - not effective for psoriasis Cosentyx sinjce 07/2018 Code(s): L40.9 - Psoriasis, unspecified (4) Osteoarthritis of lumbar spine: Code(s): M47.816 - Spondylosis without myelopathy or radiculopathy, lumbar region Plan The patient today has no signs of active psoriatic skin lesion. Similarly there is no sign of an active arthropathy related to psoriasis. It would appear that the psoriatic disease is well controlled with the Cosentyx. Her remaining pains I think are from osteoarthritis, primarily involving the left knee and lumbar spine. She has been referred to PT by orthopedics at [facility]. She is encouraged to attend PT and continue with exercise as tolerated. We will arrange follow-up at about 6 months. A repeat DEXA may be helpful at that time to assess her response to the zoledronic acid. Coding Level of Care Code Est Pt Level 3 (13160) Diagnoses Osteoarthritis of left knee M17.12 Osteoporosis M81.0 Psoriasis L40.9 Osteoarthritis of lumbar spine M47.816
[2023-01-10 10:01] VITALS: BP 142/90; PULSE 96; TEMP 36.1; O2SAT 99; BMI 28.7
== END 2023-01-10 10:37 | disposition home or self-care (01) ==
PROVIDERS: PCP Physician Assistant Medical; Visit Provider Internal Medicine Rheumatology
DX: M17.12 Unilateral primary osteoarthritis, left knee (principal); M81.0 Age-related osteoporosis without current pathological fracture; L40.9 Psoriasis, unspecified; M47.816 Spondylosis without myelopathy or radiculopathy, lumbar region
CPT/HCPCS: 99213

== ENCOUNTER → 2023-01-10 09:58 | Outpatient (BNVA) | payer MEDICARE, SELFPAY | PROVIDERS: PCP Physician Assistant Medical; Visit Provider Internal Medicine Rheumatology | DX: M17.12 Unilateral primary osteoarthritis, left knee (principal); M81.0 Age-related osteoporosis without current pathological fracture; M47.816 Spondylosis without myelopathy or radiculopathy, lumbar region; L40.9 Psoriasis, unspecified | CPT/HCPCS: 99212 ==

== ENCOUNTER 2023-07-07 10:34 | Outpatient (REF) | payer MEDICARE, SELFPAY ==
[2023-07-07 10:51] LABS: MANUAL DIFF FLAG NO
[2023-07-07 12:02] LABS: Basophils Absolute Auto 0.1 X10*3/uL (0.0-0.2); Basophils Percent Auto 1.9 % (0-2); Eosinophils Absolute Auto 0.5 X10*3/uL (0.0-0.4); Hematocrit 39.7 % (37.0-47.0); Hemoglobin 13.6 g/dl (12.0-16.0); Imm Gran Abs Auto 0.02 X10*3/uL (0.00-0.03); Imm Gran Pct Auto 0.3 % (0.0-0.4); Lymphocytes Absolute Auto 1.9 X10*3/uL (1.2-4.9); Mean Corpuscular HGB Conc 34.3 g/dl (31.0-35.0); Mean Corpuscular Hemoglobin 34.1 pg (27.0-33.0); Mean Corpuscular Volume 99.5 fL (80.0-98.0); Monocytes Absolute Auto 0.5 X10*3/uL (0.1-1.2); Neutrophils Absolute Auto 3.5 x10*3/uL (2.0-8.3); Neutrophils Percent Auto 54.8 % (45-73); Platelet Count 295 X10*3/uL (160-400); Red Blood Count 3.99 X10*6/uL (4.20-5.50); Red Cell Distribution Width 11.9 % (11.0-16.0); White Blood Count 6.5 X10*3/uL (4.8-10.8)
[2023-07-07 12:31] LABS: Alanine Aminotransferase 11 U/L (0-31); Albumin Level 4.3 g/dL (3.5-5.0); Alkaline Phosphatase 76 U/L (39-117); Anion Gap 16 (12-20); Aspartate Amino Transferase 19 U/L (5-31); Bilirubin Total 0.6 mg/dL (0.0-1.0); Blood Urea Nitrogen 8 mg/dL (9-16); C Reactive Protein 0.48 mg/dL (< or = 0.50); Calcium 9.4 mg/dL (8.4-10.2); Carbon Dioxide 25 mmol/L (22-29); Chloride 105 mmol/L (96-108); Estimated Glomerular Filt Rate > 60; Glucose Random 140 mg/dL (60-115); Sodium 142 mmol/L (135-145); Total Protein 7.5 g/dL (6.5-8.0)
[2023-07-07 12:50] LABS: Erythrocyte Sedimentation Rate 20 MM/HR (0-20)
[2023-07-12 18:14] LABS: Vitamin D 25-OH, D2 <4 ng/mL; Vitamin D 25-OH, D3 31 ng/mL; Vitamin D 25-OH, Total 31 ng/mL (30-100)
== END 2023-07-07 10:35 | disposition home or self-care (01) ==
LOC: HO.LAB 10:34
PROVIDERS: Absent Provider Nurse Practitioner Family; PCP Physician Assistant Medical; Visit Provider Internal Medicine Rheumatology
DX: M81.0 Age-related osteoporosis without current pathological fracture (principal); M17.12 Unilateral primary osteoarthritis, left knee
CPT/HCPCS: 36415; 80053; 82306; 85025; 85652; 86140

== ENCOUNTER 2023-07-18 09:53 | Outpatient (AMB) | payer MEDICARE, SELFPAY ==
--- NOTE | 2023-07-18 09:59 | MHC.OFFVIS ---
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 Cummings, presents today for follow up. Patient reports she had a fall about a month ago. Seen at [facility]. Reports multiple fractures. Accompanied by: Self / Same As Patient Allergies Penicillins [PENICILLINS] Allergy (Severe, Verified 07/18/23 10:07) ANAPHYLAXIS latex [LATEX] Allergy (Unknown, Verified 07/18/23 10:07) UNKNOWN ibuprofen [From Motrin] Allergy (Verified 07/18/23 10:07) Swelling HPI Comments Details: Ms. Beckham 83 yoF returns for evaluation of her osteoporosis, psoriasis, and osteoarthritis. She currently off Cosentyx through Dermatology for her psoriasis. She continues with various joint pains including the lower back radiating to the right buttock and thigh. That pain is worse with prolonged sitting or standing. She had received 3 doses of zoledronic acid over the last 4 years. She is having some left knee pain as well that was helped with a corticosteroid injection given fall 2021. --fell 1 month ago, frx face, ribs, and bruises; aggravated knee pain. went to [facility] --[facility] --The last 2 weeks - Developed hives from trial of new med for PsO - Sotyktu (deucravacitinib). Ws treated with Prednisone - last does this am. ?Sotyktu (deucravacitinib) - treats psoriasis by selectively targeting the immune system by inhibiting tyrosine kinase 2 (TYK2), a member of the Janus kinase (DANYEL) family. Sotyktu is approved for the treatment of adults with [id number] plaque psoriasis who are candidates for systemic therapy or phototherapy. --hx of gout - knee was aspirated at [facility] per patient and leonardtals were seen in the aspirate. They wanted to take her to the OR but never due - no septic arthritis. She says her gout flare are very very few. Takes Tyelenol or other OTC for flares. 01/10/2023: Dr. Cummings The patient returns for evaluation of her osteoporosis, psoriasis, and osteoarthritis. She remains on Cosentyx through Dermatology for her psoriasis. She continues with various joint pains including the lower back radiating to the right buttock and thigh. That pain is worse with prolonged sitting or standing. She had received 3 doses of zoledronic acid over the last 4 years. There have been no recent fractures. She is having some left knee pain as well that was helped with a corticosteroid injection given last fall. [facility] Medical History Arthritis HTN (hypertension) Psoriasis Surgical History History of right knee joint replacement H/O shoulder surgery Social History Household Members Other:: lives alone Housing: Apartment Do you presently have visiting nurse or other home services: Yes (once a week) Alcohol intake: current Alcohol intake frequency: holidays/special occasions only Alcohol type: hard liquor Patient Tobacco Use Status: Never used Tobacco e-Cigarette/Vaping Use: Never Used Second Hand Smoke Exposure: No service: No Current occupational status: retired Current occupation: right handed Review of Systems Const All systems reviewed & are unremarkable except as noted in HPI and below Physical Exam Vital Signs: Last Vital Signs Pulse 115 H 07/18/23 10:06 BP 150/100 H 07/18/23 10:06 Pulse Ox 97 07/18/23 10:06 BMI result Body Mass Index 28.6 APPEARANCE: Patient in no acute distress EXTREMITIES: No edema, no calf tenderness, normal peripheral pulses. NEURO: Oriented and alert x3. No focal weakness. Reflexes symmetric. Gait normal. SKIN: There may be a few actinic keratoses evident on the forearms but no active psoriasis is seen. The nails in the toes and fingers look normal. JOINT EXAM:.?? Cervical Spine: Mild pain with lateral flexion at 10 degrees of rotation at 30 degrees to either side. There is some cervical muscle tenderness. Thoracic Spine:.? No scoliosis.? No tenderness on palpation. Lumbar Spine:.? Alignment normal.? Mild pain with extremes of flexion or extension. Straight leg raising on the right causes some buttock and thigh pain at about 45 degrees. No tenderness. Chest Wall:.? No tenderness, swelling, increased warmth or erythema. Hands: There is pain-free range of motion of the joints. This some slight bony enlargement at the PIP joints but these are minimally tender. There is no thenar atrophy or sensory loss.? Normal pain-free range of motion without tenderness, swelling, increased warmth or erythema. Wrists: Right: Slight tenderness over the dorsum of the wrist with some mild pain at 60 degrees flexion extension but no redness or warmth. Left: Mild pain with flexion extension is 75 degrees. No swelling or tenderness. Elbows:. Normal pain-free range of motion without tenderness, swelling, increased warmth or erythema. Shoulders:.??Right: Mild pain with abduction at 90 degrees or any attempt at internal or external rotation. Passive motion is limited to about 135 degrees of abduction. There is some abductor weakness but no adenopathy or swelling. Mild anterior and posterior tenderness. Left: Mild pain with abduction 75 degrees. Passive motion is limited to about 100 degrees. There is mild anterior tenderness without abductor weakness but no adenopathy, weakness, swelling, increased warmth or erythema. Hips:? Full range of motion without pain. Hip bursa:.? No tenderness. Knees:.? Right: She has good range of motion without pain and a well-healed anterior scar from her knee replacement. There is no areas of tenderness or swelling.? Left: There is valgus deformity and slight pain with extremes of flexion or extension. There is mild patellofemoral crepitus, mild to moderate medial tenderness without redness or effusion. There is no popliteal swelling or tenderness. Ankles: Left: There is some valgus deformity at the ankle with some mild medial tenderness in questionable soft tissue swelling although some of this could be related to the valgus deformity. She has mild pain with extremes of inversion and eversion but AP motion is pain-free. There is no redness or warmth.? Right: Normal pain-free range of motion without tenderness, swelling, increased warmth or erythema. Feet: Left: There is flatfoot deformity in valgus in the foot. There is mild tenderness at the 1st MTP joint with moderate hallux valgus deformity and mild tenderness. There is also some slight tenderness over the 5th toe where she has a hammertoe deformity. No soft tissue swelling, redness or warmth. Right: Hallux valgus deformity and mild tenderness at the 1st MTP joint elsewhere there is normal pain-free range of motion without tenderness, swelling, increased warmth or erythema. Tender points:? No tenderness to digital palpation at the occiput, trapezius, second rib, lateral epicondyle, knees, greater trochanter and gluteal area bilaterally. ? Results Reviewed Results Reviewed: Laboratory Tests 07/07/23 10:50 WBC 6.5 RBC 3.99 L Hgb 13.6 Hct 39.7 Eos % (Auto) 7.0 H ESR 20 Creatinine 0.68 AST 19 ALT 11 Alkaline Phosphatase 76 C-Reactive Protein 0.48 25-OH Vitamin D Total 31 Laboratory Tests 07/07/23 10:50 Calcium 9.4 Total Bilirubin 0.6 Total Protein 7.5 Assessment & Plan Assessment & Plan (1) Osteoarthritis of left knee: Code(s): M17.12 - Unilateral primary osteoarthritis, left knee Category: Medical Qualifiers: Osteoarthritis type: primary Qualified Code(s): M17.12 - Unilateral primary osteoarthritis, left knee (2) Osteoporosis: Comment: Started Fosamax 04/2018 - gi side effects so it was stopped Zoledronic acid 09/2018; 03/2020; 02/2022 Code(s): M81.0 - Age-related osteoporosis without current pathological fracture Category: Medical Qualifiers: Osteoporosis type: age-related Presence of current pathological fracture: with current pathological fracture Encounter type: sequela Qualified Code(s): M80.00XS - Age-related osteoporosis with current pathological fracture, unspecified site, sequela (3) Psoriasis: Comment: Humira - stopped - ? due to infection Tremfya - not effective for psoriasis Cosentyx since 07/2018 Code(s): L40.9 - Psoriasis, unspecified Category: Medical (4) Osteoarthritis of lumbar spine: Code(s): M47.816 - Spondylosis without myelopathy or radiculopathy, lumbar region Category: Medical Qualifiers: Spinal osteoarthritis complication: with radiculopathy Qualified Code(s): M47.26 - Other spondylosis with radiculopathy, lumbar region (5) History of gout: Code(s): Z87.39 - Personal history of other diseases of the musculoskeletal system and connective tissue Category: Medical Plan #Psorias: The patient today has no signs of active psoriatic skin lesion. Similarly there is no sign of an active arthropathy related to psoriasis. It would appear that the psoriatic disease is well controlled by DERMS regimen. She will continue to follow-uo with DERM. #OA (knee and Spine): She does have remaining pains I think are from osteoarthritis, primarily involving the left knee and lumbar spine. She has done PT referred by orthopedics at [place]. She is encouraged to continue with exercise as tolerated. Will obtain records from [facility] that evidences fluid aspirate with chystals. #Gout: The patient reports a history of gout. She is not on a routine med and appears not to require one at this point. Will obtain updated Uric acid levels. #Osteoporosis: I ordered the Bone Density. Patient will verify date of last one to make sure it is at least 1 yr and 1 day due. A repeat DEXA may be helpful at that time to assess her response to the zoledronic acid. Per patient the last Bone density showed minimal improvement. We will consider to do Prolia if not much improvement on updated DEXA since 02/2022 Reclast. We will schedule that appointment after the Bone density is obtained. Recent labs are favourable to treatment. Mild elevation in her calcium - she has since stopped supplements. She continues with Vitamin D. We will arrange follow-up at about 6 months after first treatment I spent 30 min reviewing history, evaluating patient and documenting. Orders: Orders Uric Acid Today Z87.39 - Personal history of other diseases of the musculoskeletal system and connective tissue XR DEXA axial skeleton Today M80.00XS - Age-related osteoporosis with current pathological fracture, unspecified site, sequela Coding Level of Care Code Est Pt Level 4 (35557) Complex EM visit Add On G2211 Diagnoses Primary osteoarthritis of left knee M17.12 Osteoarthritis type: primary Age-related osteoporosis with current pathological fracture, sequela M80.00XS Osteoporosis type: age-related Presence of current pathological fracture: with current pathological fracture Encounter type: sequela Psoriasis L40.9 Osteoarthritis of spine with radiculopathy, lumbar region M47.26 Spinal osteoarthritis complication: with radiculopathy History of gout Z87.39
[2023-07-18 10:06] VITALS: BP 150/100; PULSE 115; O2SAT 97; BMI 28.6
== END 2023-07-18 10:35 | disposition home or self-care (01) ==
LOC: HO.RHE 09:53
PROVIDERS: PCP Physician Assistant Medical; Visit Provider Nurse Practitioner Family
DX: M17.12 Unilateral primary osteoarthritis, left knee (principal); M80.00XS Age-related osteoporosis with current pathological fracture, unspecified site, sequela; L40.9 Psoriasis, unspecified; M47.26 Other spondylosis with radiculopathy, lumbar region; Z87.39 Personal history of other diseases of the musculoskeletal system and connective tissue
CPT/HCPCS: 99214; G2211

== ENCOUNTER → 2023-07-18 09:53 | Outpatient (BNVA) | payer MEDICARE, SELFPAY | PROVIDERS: PCP Physician Assistant Medical; Visit Provider Nurse Practitioner Family | DX: M17.12 Unilateral primary osteoarthritis, left knee (principal); M80.00XS Age-related osteoporosis with current pathological fracture, unspecified site, sequela; M47.26 Other spondylosis with radiculopathy, lumbar region; L40.9 Psoriasis, unspecified; Z87.39 Personal history of other diseases of the musculoskeletal system and connective tissue | CPT/HCPCS: 99212 ==

== ENCOUNTER 2023-09-07 09:27 | Outpatient (REF) | payer MEDICARE, SELFPAY ==
--- NOTE | ~2023-09-07 | MM_ITS ---
EXAMINATION: BONE DENSITOMETRY CLINICAL INDICATION: Age-related osteoporosis with current pathological fracture. COMPARISON: This is the patient's baseline examination. TECHNIQUE: Using a [employer] DXA System (software version: 13.1) manufactured by [employer], dual-energy x-ray absorptiometry was performed of the lumbar spine and left hip. The images are of good technical quality. Summary results are attached. FINDINGS: LEFT FEMUR, NECK: BMD 0.728 g/cm2, Z-score -0.2, T-score -2.2, osteopenia. LEFT FEMUR, TOTAL: BMD 0.771 g/cm2, Z-score 0.0, T-score -1.9, osteopenia. AP SPINE L1-L4: BMD 1.164 g/cm2, Z-score 1.5, T-score -0.1, normal. IDENTIFIED RISK FACTORS: Menopause, low calcium intake, history of fracture (adult). HISTORY OF FRACTURE: Other. MEDICATIONS: Calcium supplements or multivitamin, vitamin D. MM/XR DEXA axial skeleton IMPRESSION: 1. DIAGNOSIS: Osteopenia based on the lowest T-score value of -2.2 in the femoral neck applying World Health Organization criteria. 2. 10-YEAR FRACTURE RISK PREDICTION, FRAX: Major osteoporotic fracture (clinical spine, forearm, hip or shoulder) 23.8%. Hip fracture 7.2%. 3. Treatment Recommendations: NOF guidelines recommend consideration for treatment in postmenopausal women and men age 50 and older presenting with the following: -A hip or vertebral (clinical or morphometric) fracture. -T-score less than or equal to -2.5 at the femoral neck or spine after appropriate evaluation to exclude secondary causes. -Low bone mass at the hip or spine and a 10-year fracture probability by FRAX of greater than or equal to 3% for hip fracture or greater than or equal to 20% for major osteoporotic fracture based on the [place] adapted WHO algorithm. 4. Other Recommendations: All treatment decisions require clinical judgment and consideration of individual patient factors, including patient preferences, comorbidities, previous drug use, risk factors not captured in the FRAX model (e.g. frailty, falls, vitamin D deficiency, increased bone turnover, interval significant decline in bone density) and possible under or overestimation of fracture risk by FRAX. Additional medical evaluation for secondary cause of low bone mineral density may be appropriate. FUTURE SCAN RECOMMENDATION: People with diagnosed cases of osteoporosis or at high risk for fracture should have regular bone mineral density tests. For patients eligible for Medicare, routine testing is allowed once every 2 years. The testing frequency can be increased to one year for patients who have rapidly progressing disease, those who are receiving or discontinuing medical therapy to restore bone mass, or have additional risk factors.
== END 2023-09-07 09:28 | disposition home or self-care (01) ==
LOC: HO.MAMMO 09:27
PROVIDERS: PCP Physician Assistant Medical; Visit Provider Nurse Practitioner Family
DX: M81.0 Age-related osteoporosis without current pathological fracture (principal)
CPT/HCPCS: 77080

== ENCOUNTER 2024-01-23 10:01 | Outpatient (AMB) | payer MEDICARE, SELFPAY ==
--- NOTE | 2024-01-23 10:13 | MHC.OFFVIS ---
Vital Signs 01/23/24 10:19 Height 5 ft 2 in Weight 158 lb 4.67 oz BMI 28.9 BP 130/42 L Blood Pressure Location Lt brachial Position Sitting Pulse 86 Pulse Source Pulse Oximeter Pulse Oximetry (%) 93 Oxygen Delivery Method Room Air Intake Visit Reasons: OA/PsO/Osteoporosis/cm Intake Note: Patient presents for follow up on OA/PSO/Osteoporosis today. She was last seen in the office on 07/18/23 by Rosanne Florez. 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 Accompanied by: Self / Same As Patient Allergies Penicillins [PENICILLINS] Allergy (Severe, Verified 01/23/24 10:21) ANAPHYLAXIS latex [LATEX] Allergy (Unknown, Verified 01/23/24 10:21) UNKNOWN ibuprofen [From Motrin] Allergy (Verified 01/23/24 10:21) Swelling Medication List - Last Reconciled 01/23/24 by Anayeli Sultana MD amlodipine 5 mg PO DAILY azelastine 0.05% 1 drp ophthalmic (eye) BID PRN fluticasone propionate 50 mcg/actuation sprays intranasal losartan 50 mg PO DAILY oxycodone-acetaminophen 10-325 mg 1 tab PO QID PRN paroxetine HCl 20 mg PO DAILY secukinumab 300 mg subcut Q4W triamcinolone acetonide 0.025% appl topical zolpidem 5 mg PO BEDTIME PRN HPI Comments Details: Patient is an 83-year-old female with hypertension, osteoarthritis, psoriasis and osteoporosis here today for follow up. Interval History: Last seen 07/18/23 with Rosanne Florez. At that time patient was stable and no changes made to medications Since that visit patient reports 2 falls: Falls - Mechanical fall 06/2023. Broke ribs. Knee pain - Trampled at a [employer] work display 08/2023. Rib pain no new gout flares, no prolonged AM stiffness, no dactylitis Currently using Consentyx at a higher dose as per derm for her PsO Rheumatologic History: Patient establish care at [facility] 11/09/[address] Joseph Cummings. 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 Current Rheumatology Medication(s): IV Reclast since 2018 [facility] Medical History (Updated 01/23/24 @ 12:21 by Anayeli Sultana MD) History of gout Arthritis Psoriasis HTN (hypertension) Surgical History History of right knee joint replacement H/O shoulder surgery Social History Household Members Other:: lives alone Housing: Apartment Do you presently have visiting nurse or other home services: Yes (once a week) Alcohol intake: current Alcohol intake frequency: holidays/special occasions only Alcohol type: hard liquor Patient Tobacco Use Status: Never used Tobacco e-Cigarette/Vaping Use: Never Used Second Hand Smoke Exposure: No service: No Current occupational status: retired Current occupation: right handed Review of Systems Const Details: Review of Systems Constitutional: Denies fever, chills, weight loss ENT: Denies vision changes, eye pain or eye redness, dental caries, dry mouth GI: Denies nausea, vomiting, diarrhea, abdominal pain, change in BM Pulm: Denies SOB, DIAL, hemoptysis, wheezing Cards: Denies chest pain, palpitations Skin: Denies Raynaud's, rash, nail changes, photosensitivity, DOOR PERSON: Denies headaches, weakness, paresthesias, recurrent falls MSK: as per HPI All other systems reviewed and are unremarkable except noted above Physical Exam Vital Signs: Last Vital Signs Pulse 86 01/23/24 10:19 BP 130/42 L 01/23/24 10:19 Pulse Ox 93 01/23/24 10:19 Oxygen Delivery Method Room Air 01/23/24 10:19 BMI result Body Mass Index 28.9 Physical Examination CONSTITUITIONAL Patient alert and cooperative. Well appearing and in no apparent painful distress HEENT Conjunctiva and sclera clear. ?Pupils equal round and reactive to light. ?No lymphadenopathy. ?No tophi noted to the ears CHEST/RESPIRATORY SYSTEM Normal respiratory effort and able to speak in complete sentences. ?Clear to auscultation bilaterally. ?No crackles, rales, rhonchi, wheezes heard. CARDIAC SYSTEM Regular rate and rhythm. ?S1 and S2 heard no murmurs. ?Radial pulses intact bilaterally MSK Hands: ?Good park interpretive ranger strength bilaterally. ?No synovitis noted to the MCPs, PIPs or DIPs. ?No tenderness to palpation of these joints. Wrists: ?Full range of motion at the wrists without pain. ?No tenderness to palpation or synovitis noted to the wrists. Elbows: Full range of motion without pain. No tenderness, weakness, swelling, increased warmth or erythema. Shoulders: Limited active range of motion but full passive range of motion. Hips: Full range of motion without pain. Hip bursa: No tenderness to palpation Knees: ?Full range of motion. ?No tenderness, swelling, increased warmth or erythema. No effusion. Mild crepitations bilaterally. SKIN Skin intact without rashes. Results Reviewed Results Reviewed: Laboratory Tests 07/07/23 10:50 Calcium 9.4 Alkaline Phosphatase 76 25-OH Vitamin D Total 31 25-Hydroxy Vitamin D3 31 Assessment & Plan Assessment & Plan (1) Osteoporosis: Comment: DEXA 09/07/23: Left femur neck -2.2, Left femur total -1.9, AP spine -0.1 Started Fosamax 04/2018 - gi side effects so it was stopped Zoledronic acid 09/2018; 03/2020; 02/2022 Code(s): M81.0 - Age-related osteoporosis without current pathological fracture Category: Medical Qualifiers: Osteoporosis type: age-related Presence of current pathological fracture: with current pathological fracture Encounter type: sequela Qualified Code(s): M80.00XS - Age-related osteoporosis with current pathological fracture, unspecified site, sequela Plan: #Osteoporosis with rib fractures Patient on IV reclast for osteoporosis. Needs IV Reclast now and then can consider drug holiday for 2 years Gave patient pamphlet for weight bearing exercises Continue Vit D supplementation Continue calcium intake RTC 6 months (2) History of gout: Code(s): Z87.39 - Personal history of other diseases of the musculoskeletal system and connective tissue Category: Medical Plan: #Crystal proven non tophaceous gout No flares in the past year Not currently on ULT Will monitor off therapy for now No tophi noted on exam (3) Osteoarthritis of left knee: Code(s): M17.12 - Unilateral primary osteoarthritis, left knee Category: Medical Qualifiers: Osteoarthritis type: primary Qualified Code(s): M17.12 - Unilateral primary osteoarthritis, left knee Plan: #Bilateral knee OA Stable Encouraged light exercises Patient currently enrolled in a gym and is planning to add swimming to her routine (4) Psoriatic arthritis: Comment: methotrexate added to Cosentyx 02/2020 - took it for about a year, but not helpful, mostly pain from OA knees Code(s): L40.50 - Arthropathic psoriasis, unspecified Category: Medical Plan: #PsA I am unsure if this patient truly has a component of PsA. She does not have a history of dactylitis and her main complaints are knee and shoulder which is likely due to OA She can continue consentyx as per Derm for management of PsO (dosage recently increased from 150mg to 300mg by derm) (5) Psoriasis: Comment: Humira - stopped - ? due to infection Tremfya - not effective for psoriasis Sotyktu - rash Cosentyx since 07/2018 Code(s): L40.9 - Psoriasis, unspecified Category: Medical Plan: #PsO Continue follow up with derm Plan I spent 20 minutes reviewing the record and labs, seeing the patient, discussing the treatment plan and documenting in the medical record ? Orders: Referrals Infusion Center Notification M80.00XS - Age-related osteoporosis with current pathological fracture, unspecified site, sequela Medications: New zoledronic posj-[id number] 5 mg/100 mL (Reclast) 5mg intravenously YEARLY; Coding Level of Care Code Est Pt Level 3 (34807) Complex EM visit Add On G2211 Diagnoses Age-related osteoporosis with current pathological fracture, sequela M80.00XS Osteoporosis type: age-related Presence of current pathological fracture: with current pathological fracture Encounter type: sequela History of gout Z87.39 Primary osteoarthritis of left knee M17.12 Osteoarthritis type: primary Psoriatic arthritis L40.50 Psoriasis L40.9
[2024-01-23 10:19] VITALS: BP 130/42; PULSE 86; O2SAT 93; BMI 28.9
== END 2024-01-23 10:44 | disposition home or self-care (01) ==
PROVIDERS: PCP Physician Assistant Medical; Visit Provider Student in an Organized Health Care Education/Training Program
DX: M80.00XS Age-related osteoporosis with current pathological fracture, unspecified site, sequela (principal); Z87.39 Personal history of other diseases of the musculoskeletal system and connective tissue; M17.12 Unilateral primary osteoarthritis, left knee; L40.50 Arthropathic psoriasis, unspecified; L40.9 Psoriasis, unspecified
CPT/HCPCS: 99213; G2211

== ENCOUNTER → 2024-01-23 10:01 | Outpatient (BNVA) | payer MEDICARE, SELFPAY | PROVIDERS: PCP Physician Assistant Medical; Visit Provider Student in an Organized Health Care Education/Training Program | DX: L40.9 Psoriasis, unspecified (principal); M17.0 Bilateral primary osteoarthritis of knee; M80.00XS Age-related osteoporosis with current pathological fracture, unspecified site, sequela; I10 Essential (primary) hypertension; X58.XXXS Exposure to other specified factors, sequela; Z87.39 Personal history of other diseases of the musculoskeletal system and connective tissue; Z79.899 Other long term (current) drug therapy | CPT/HCPCS: 99212 ==

== ENCOUNTER 2024-02-05 12:09 | Outpatient (REF) | payer MEDICARE, SELFPAY ==
[2024-02-05 13:55] LABS: Parathyroid Hormone Intact 88.6 pg/mL (8.7-77.1)
[2024-02-05 13:58] LABS: Alanine Aminotransferase 22 U/L (0-31); Albumin Level 4.3 g/dL (3.5-5.0); Alkaline Phosphatase 70 U/L (39-117); Anion Gap 12 (12-20); Aspartate Amino Transferase 32 U/L (5-31); Bilirubin Total 0.7 mg/dL (0.0-1.0); Blood Urea Nitrogen 5 mg/dL (9-16); Calcium 8.5 mg/dL (8.4-10.2); Carbon Dioxide 28 mmol/L (22-29); Chloride 104 mmol/L (96-108); Estimated Glomerular Filt Rate > 60; Glucose Random 127 mg/dL (60-115); Phosphorus 3.1 mg/dL (2.7-4.5); Sodium 140 mmol/L (135-145); Total Protein 7.5 g/dL (6.5-8.0)
[2024-02-05 14:13] LABS: Vitamin D 25-OH Total 36.2 ng/mL (>30)
[2024-02-09 16:13] LABS: Vitamin D 25-OH, D2 <4 ng/mL; Vitamin D 25-OH, D3 32 ng/mL; Vitamin D 25-OH, Total 32 ng/mL (30-100)
== END 2024-02-05 12:10 | disposition home or self-care (01) ==
LOC: HO.LAB 12:09
PROVIDERS: Visit Provider Student in an Organized Health Care Education/Training Program
DX: M80.00XS Age-related osteoporosis with current pathological fracture, unspecified site, sequela (principal)
CPT/HCPCS: 36415; 80053; 82306; 83970; 84100

== ENCOUNTER 2024-05-17 09:31 | Outpatient (AMB) | payer MEDICARE, SELFPAY ==
[2024-05-17 09:40] VITALS: BP 132/78; PULSE 56; O2SAT 100; BMI 28.2
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
== END 2024-05-17 10:30 | disposition home or self-care (01) ==
PROVIDERS: PCP Physician Assistant Medical; Visit Provider Student in an Organized Health Care Education/Training Program
DX: M80.00XS Age-related osteoporosis with current pathological fracture, unspecified site, sequela (principal)
CPT/HCPCS: 99213

== ENCOUNTER → 2024-05-17 09:31 | Outpatient (BNVA) | payer MEDICARE, SELFPAY | PROVIDERS: PCP Physician Assistant Medical; Visit Provider Student in an Organized Health Care Education/Training Program | DX: M80.00XD Age-related osteoporosis with current pathological fracture, unspecified site, subsequent encounter for fracture with routine healing (principal) | CPT/HCPCS: 99212 ==

== ENCOUNTER 2024-05-29 12:04 | Outpatient (REF) | payer MEDICARE, SELFPAY ==
[2024-05-29 13:47] LABS: Alanine Aminotransferase 15 U/L (0-31); Albumin Level 4.4 g/dL (3.5-5.0); Alkaline Phosphatase 75 U/L (39-117); Anion Gap 10 (12-20); Aspartate Amino Transferase 23 U/L (5-31); Bilirubin Total 0.7 mg/dL (0.0-1.0); Blood Urea Nitrogen 11 mg/dL (9-16); Calcium 9.5 mg/dL (8.4-10.2); Carbon Dioxide 27 mmol/L (22-29); Chloride 106 mmol/L (96-108); Estimated Glomerular Filt Rate > 60; Glucose Random 103 mg/dL (60-115); Potassium 3.9 mmol/L (3.3-5.1); Sodium 139 mmol/L (135-145); Total Protein 7.5 g/dL (6.5-8.0)
[2024-05-29 13:53] LABS: Parathyroid Hormone Intact 56.3 pg/mL (8.7-77.1)
--- OUTSIDE RECORDS SUMMARY | 2024-05-29 14:08 | XMS_ITS | Clinical Summary ---
Author Organization [facility] [address] [place] [address] [place] [phone] Phone Care Team Providers Care Mixing Supervisor Name Role Phone Sherman Johnson Primary Care Provider [phone] Allergies Active Allergy Reactions Criticality Noted Date Comments Bupropion Hcl (Smoking Deter) 02/03/2018 Other Reaction(s): Rash/Dermatitis Latex Anaphylaxis High 09/24/2009 Nsaids (Non-Steroidal Anti-Inflammatory Drug) Anaphylaxis High 06/14/2017 Penicillins Anaphylaxis High 09/24/2009 Reaction occurred in 2009 Cetirizine Itching 03/14/2024 Medications azelastine (ASTELIN) 137 mcg (0.1 %) nasal spray 2 Sprays by Each Nare route 2 times daily. Use in each nostril as directed 06/02/19 21 Active cholecalcifero l (VITAMIN D-3) 25 mcg (1,000 unit) tablet Take 1 Tablet by mouth daily. 06/02/19 22 Active clotrimazole (LOTRIMIN) 1 % cream Apply to skin and toenails daily for 12 weeks 02/01/20 22 Active hydrocortisone valerate (WEST-BRENT) 0.2 % ointment Apply to affected areas on body 2 times a day for 7 days. Avoid face and groin 12/14/19 23 Active triamcinolone (KENALOG) 0.025 % cream Apply to affected areas twice daily as needed 01/03/20 23 Active zoledronic acid (RECLAST) 5 mg/100 mL piggyback Inject 5 mg into the vein Once. 03/30/19 21 Active multivit-min/i trace fum/folic ac (ONE-A-DAY WOMEN'S COMPLETE ORAL) Take by mouth. Active multivitamin tablet Take 1 tablet by mouth 1 (one) time each day. 08/19/19 15 Active lisinopriL (PRINIVIL,ZEST RIL) 30 mg tablet Take 1 tablet (30 mg total) by mouth 1 (one) time each day. Active cyanocobalamin (VITAMIN B-12) 1,000 mcg tablet Take 1 tablet (1,000 mcg total) by mouth 1 (one) time each day. 01/07/20 15 Active busPIRone (BUSPAR) 5 mg tablet Take 1 tablet (5 mg total) by mouth 2 (two) times a day. 60 each 11 04/05/19 25 Active oxyCODONE-acet aminophen (PERCOCET) 10-325 mg per tabletIndicati ons:Psoriatic arthritis (CMS/HCC) Take 1 tablet by mouth every 6 (six) hours if needed for moderate pain for up to 28 days. for pain Max Daily Amount: 4 tablets 112 tablet 05/09/19 25 025 Active zolpidem (AMBIEN) 5 mg tablet Take 1 tablet (5 mg total) by mouth at bedtime as needed for sleep for up to 28 days. for insomnia Max Daily Amount: 5 mg 28 tablet 05/09/19 25 025 Active baclofen (LIORESAL) 10 mg tablet Take 1 tablet (10 mg total) by mouth 3 (three) times a day. 270 each 3 05/09/19 25 Active cetirizine (ZyrTEC) 10 mg tablet TAKE ONE TABLET BY MOUTH EVERY DAY 07/21/19 24 025 Discontinued oxyCODONE-acet aminophen (PERCOCET) 10-325 mg per tabletIndicati ons:Psoriatic arthritis (CMS/HCC) Take 1 tablet by mouth every 6 (six) hours if needed for moderate pain for up to 28 days. for pain Max Daily Amount: 4 tablets 112 tablet 04/11/19 25 025 Discontinued(Re order) zolpidem (AMBIEN) 5 mg tablet Take 1 tablet (5 mg total) by mouth at bedtime as needed for sleep for up to 28 days. for insomnia Max Daily Amount: 5 mg 28 tablet 04/11/19 25 025 Discontinued(Re order) Active Problems Problem Noted Date Diagnosed Date Depression 12/14/2023 Hypertension 12/14/2023 Psoriatic arthritis 03/22/2020 Overview (12/14/2023): 02/2020: methotrexate added to Cosentyx Primary insomnia 12/06/2019 Osteoporosis without current pathological fractu re 05/11/2018 Overview (12/14/2023): Started fosamax 04/2018 - gi side effects so it was stopped Zoledronic acid 09/2018; 03/2020 Obesity (BMI 30.0-34.9) 06/14/2017 Acute urticaria 05/08/2017 Chronic seasonal allergic rhinitis 05/08/2017 Recurrent sinus infections 05/08/2017 Seasonal allergic conjunctivitis 05/08/2017 Non-seasonal allergic rhinitis due to pollen 05/2016 Anxiety 11/10/2015 Impaired fasting glucose 11/21/2011 Vitamin D deficiency 06/23/2011 Hyperthyroidism, subclinical 06/14/2010 Psoriasis 10/16/2009 Overview (12/14/2023): Humira - stopped - ? due to infection Tremfya - not effective for psoriasis Cosentyx 07/2018 Encounters Date Type Department Care Team Description 05/08/2024 12:00 PM EDT Office Visit Adult Medicine [address] [phone] Isaac Pelletier MD Chronic midline low back pain with left-sided sciatica (Primary Dx); Primary hypertension 04/30/2024 Telephone Adult Medicine [address] [phone] Sherman Johnson PA Medication 04/11/2024 Telephone Adult Medicine [address] [phone] Alethea Chester MA 04/10/2024 Telephone Adult Medicine [address] [phone] Sherman Johnson PA Medication 04/10/2024 Telephone Adult Medicine [address] [phone] Sherman Johnson PA Advice Only; provider call back 04/05/2024 12:45 PM EST Office Visit Adult [address] [phone] Sherman Johnson, PA Primary hypertension (Primary Dx); Anxiety; Depression, unspecified depression type; Hyperthyroidism, subclinical; Obesity (BMI 30.0-34.9); Osteoporosis without current pathological fracture, unspecified osteoporosis type; Psoriatic arthritis ([facility]/HCC); Vitamin D deficiency; Fall, initial encounter; Rib injury; Buttock pain 04/03/2024 Telephone Adult Medicine [address] [phone] Sherman Johnson, PA fax 03/14/2024 9:00 AM EST Office Visit Orthopedics [address] [phone] Marcos Rojas, [place] Pain in left knee; Other chronic pain from Last 3 Months Immunizations Name Administration Dates Next Due Influenza Quadravalent, MDCK , 0.5ml, with preservative (Flucelvax) 6mo and older 01/01/2017 Influenza trivalent, 0.5mL ( Fluad) 65yo and older 12/26/2023,12/13/2022,12/02/2020,10/31,11/29/2017 Influenza trivalent, 0.5mL, preservative free (Fluarix; FluLaval; Fluzone) ages 6mo and older (Afluria) 3 years and older 12/29/2015,12/04/2014,11/01/2013,01/02,11/21/2011,12/16/2010,11/27/2009 Influenza, Unspecified 01/03/2022,11/24/2018 Pneumococcal conjugate 13 va lent (Prevnar 13, PCV13) 2mo and older 06/04/2014 Pneumococcal polysaccharide 23 valent (Pneumovax 23) 2yo and older 12/16/2010 Zoster recombinant (Shingrix ) 19yo and older 05/19/2022 Surgical History Surgery Date Site/Laterality Comments CHOLECYSTECTOMY PROCEDURE: HISTORICAL CHOLECYSTECTOMY APPENDECTOMY PROCEDURE: HISTORICAL APPENDECTOMY SECTION PROCEDURE: [place] DELIVERY ONLY COLONOSCOPY 2006 PROCEDURE: HISTORICAL COLONOSCOPY; COMMENT: reportedly normal ROTATOR CUFF REPAIR approx 2004 PROCEDURE: HISTORICAL ROTATOR CUFF REPAIR; COMMENT: bilateral TOTAL KNEE ARTHROPLASTY 2010 PROCEDURE: HISTORICAL TOTAL KNEE REPLACE; COMMENT: right CATARACT EXTRACTION PROCEDURE: HISTORICAL CATARACT REMOVAL; COMMENT: bilateral OTHER SURGICAL HISTORY PROCEDURE: [place] RADIAL KERATOTOMY; COMMENT: right Medical History Medical History Date Comments Hypertension DX:Hypertension Hypercholesteremia DX:Hyperchole steremia Depression DX:Depression Psoriasis DX:Psoriasis Arthritis DX:Arthritis Bursitis, knee DX:Bursitis, kne e Hyperthyroidism, subclinical 06/14/2010 DX: Hyperthyroidism, subclinical Impaired fasting glucose 11/21/2011 DX:Impa ired fasting glucose Hyperthyroidism, subclinical 06/14/2010 DX: Hyperthyroidism, subclinical Arthritis of knee 06/27/2013 DX:Arthritis o f knee Obesity (BMI 30.0-34.9) 06/14/2017 DX:Obesi ty (BMI 30.0-34.9) Psoriasis DX:Psoriasis Psoriatic arthritis (CMS/HCC) 03/22/2020 DX :Psoriatic arthritis (HCC) Solitary cyst of breast DX:Solit brittanie cyst of breast Family History Medical History Relation Name Comments No Known Problems Aunt No Known Problems Brother 1 No Known Problems Brother 2 No Known Problems Brother 3 Arthritis Father No Known Problems Maternal Grandfather No Known Problems Maternal Grandmother Hypertension Mother No Known Problems Other No Known Problems Paternal Grandfather No Known Problems Paternal Grandmother No Known Problems Sister No Known Problems Son 1 No Known Problems Son 2 No Known Problems Uncle Blindness Neg Hx Breast cancer Neg Hx Cataracts Neg Hx Glaucoma Neg Hx Macular degeneration Neg Hx Strabismus Neg Hx Relation Name Status Comments Aunt Brother 1 lung dx Brother 2 x2, healthy Brother 3 Father (Age 65) [place] in 70's Maternal Grandfather Maternal Grandmother Mother (Age 54) HTN smoker drinker Other Paternal Grandfather Paternal Grandmother Sister Son 1 Alive mild autism Son 2 Alive Uncle Social History Tobacco Use Types Packs/Day Years Used Date Smoking Tobacco: Former Cigarettes 0.5 51 0 02/20/1959 - 02/19/2010 Smokeless Tobacco: Never Tobacco Cessation:Counseling Given: Not Answered Alcohol Use Standard Drinks/Week Comments Yes 0 (1 standard drink = 0.6 oz pur e alcohol) Comments No Sex and Gender Information Value Date Recorded Sex Assigned at Not on file Legal Sex Female 12:50 AM EST Gender Identity Not on file Sexual Orientation Not on file Obstetrics History Last Filed Vital Signs Vital Sign Reading Time Taken Comments Blood Pressure 158/77 05/08/2024 11:50 AM EDT Pulse 80 05/08/2024 11:50 AM EDT Temperature 37 ??C (98.6 ??F) 05/08/2024 11:49 AM EDT Respiratory Rate 17 05/08/2024 11:49 AM EDT Oxygen Saturation 97% 12/25/2023 1:14 PM EST Inhaled Oxygen Concentration - - Weight 70.1 kg (154 lb 9.6 oz) 05/08/2024 11:49 AM EDT Height 157.5 cm (5' 2 ) 05/08/2024 11:49 AM EDT Body Mass Index 28.28 05/08/2024 11:49 AM EDT Plan of Treatment Health Maintenance Due Date Last Done Comments DTaP,Tdap,and Td Vaccines (1 - Tdap) 1961 RSV Immunization Adult Patients (1 - 1-dose 75+ series) 2017 Medicare Annual Wellness Visit 01/29/2022 Social Influencers of Health Screening 01/29/2022 Zoster Vaccines (2 of 2) 07/14/2022 05/19/2022 COVID-19 Vaccine ( season) 2023 01/07/2021, 04/30/2020, 04/03/2020 Depression Screening 07/24/2024 07/25/2023 Falls Risk Assessment 07/24/2024 07/25/2023 Hypertension/CHF/CAD Annual BMP Blood Test 04/10/2025 04/10/2024, 12/25/2023, 09/06/2022 Osteoporosis Screening (Bone Density Screening) 05/10/2028 05/10/2018 Cholesterol Screening (Lipid Panel) 04/10/2029 04/10/2024, 09/07/2023, 09/07/2023 Pneumococcal Vaccine: 50+ Years Completed 06/04/2014, 12/16/2010 Influenza Vaccine Completed 12/26/2023, , 01/03/2022, Additional history exists HIB Vaccines Aged Out No longer eligi ble based on patient's age to complete this topic HPV Vaccines Aged Out No longer eligi ble based on patient's age to complete this topic Hepatitis A Vaccines Aged Out No long er eligible based on patient's age to complete this topic Hepatitis B Vaccines Aged Out No long er eligible based on patient's age to complete this topic IPV Vaccines Aged Out No longer eligi ble based on patient's age to complete this topic MMR Vaccines Aged Out No longer eligi ble based on patient's age to complete this topic Meningococcal ACWY Vaccine Aged Out N o longer eligible based on patient's age to complete this topic Meningococcal B Vaccine Aged Out No l onger eligible based on patient's age to complete this topic RSV Immunization Patients Under 20 months Aged Out No longer eligible based on patient's age to complete this topic Varicella Vaccines Aged Out No longer eligible based on patient's age to complete this topic Procedures Procedure Name Priority Date/Time Associated Diagnosis Comments LIPID PANEL WITH REFLEX TO DIRECT LDL Routine 04/10/2024 1:19 PM EST Primary hypertension Anxiety Depression, unspecified depression type Hyperthyroidism, subclinical Obesity (BMI 30.0-34.9) Osteoporosis without current pathological fracture, unspecified osteoporosis type Psoriatic arthritis (CMS/HCC) Vitamin D deficiency Fall, initial encounter Rib injury Buttock pain COMPREHENSIVE METABOLIC PANEL Routine 04/10/2024 1:19 PM EST Primary hypertension Anxiety Depression, unspecified depression type Hyperthyroidism, subclinical Obesity (BMI 30.0-34.9) Osteoporosis without current pathological fracture, unspecified osteoporosis type Psoriatic arthritis (CMS/HCC) Vitamin D deficiency Fall, initial encounter Rib injury Buttock pain THYROID STIMULATING HORMONE WITH REFLEX TO FREE T4 AND FREE T3 Routine 04/10/2024 1:19 PM EST Primary hypertension Anxiety Depression, unspecified depression type Hyperthyroidism, subclinical Obesity (BMI 30.0-34.9) Osteoporosis without current pathological fracture, unspecified osteoporosis type Psoriatic arthritis (CMS/HCC) Vitamin D deficiency Fall, initial encounter Rib injury Buttock pain VITAMIN D 25 HYDROXY Routine 04/10/2024 1:19 PM EST Primary hypertension Anxiety Depression, unspecified depression type Hyperthyroidism, subclinical Obesity (BMI 30.0-34.9) Osteoporosis without current pathological fracture, unspecified osteoporosis type Psoriatic arthritis (CMS/HCC) Vitamin D deficiency Fall, initial encounter Rib injury Buttock pain [place] ARTHROCENTESIS/ASPIRA TION/INJECTION MAJOR JOINT/BURSA W/O U/S GUIDANCE Routine 03/14/2024 9:00 AM EST Pain in left knee DEPRESSION SCREENING Routine 07/25/2023 FALLS RISK ASSESSMENT Routine 07/25/2023 DXA BONE DENSITY STUDY 1+ SITS AXIAL SKEL Routine 05/10/2018 11:23 AM EDT Encounter for screening for osteoporosis from Last 3 Months or Most Recently Relevant to Health Maintenance Results * Thyroid stimulating hormone with reflex to free t4 and free t3 (04/10/2024 1:19 PM EST) [facility] TSH 0.60 0.40 - 4.00 mcIU/mL LAB CHEMISTRY METHOD 04/10/2024 5:04 PM EST [facility] Blood Venous blood specimen / Unknown Venipuncture / Unknown 04/10/2024 1:19 PM EST 04/10/2024 1:19 PM EST us Sherman WRIGHT LAB BLOOD ORDERABLES Modesta l Result [facility] [address] [place] [address], [place] [phone] * (ABNORMAL) Lipid panel with reflex to direct LDL (04/10/2024 1:19 PM EST) [facility] Cholesterol 191 0 - 200 mg/dL LAB CHEMISTRY METHOD 04/10/2024 4:58 PM EST [facility] Triglycerides 164(H) 0 - 150 mg/dL LAB CHEMISTRY METHOD 04/10/2024 4:58 PM EST [facility] HDL 63 >=40 mg/dL LAB CHEMISTRY METHOD 04/10/2024 4:58 PM EST [facility] LDL Calculated 95 0 - 100 mg/dL LAB CHEMISTRY METHOD 04/10/2024 4:58 PM [facility] VLDL Cholesterol J Carlos 32.8 mg/dL LAB CHEMISTRY METHOD 04/10/2024 4:58 PM EST [facility] Non HDL Chol. (LDL+VLDL) 128 <145 mg/dL LAB CHEMISTRY METHOD 04/10/2024 4:58 PM EST [facility] Chol/HDL Ratio 3.0 0.0 - 4.4 LAB CHEMISTRY METHOD 04/10/2024 4:58 PM [facility] Blood Venous blood specimen / Unknown Venipuncture / Unknown 04/10/2024 1:19 PM EST 04/10/2024 1:19 PM EST Sherman WRIGHT LAB BLOOD ORDERABLES Modesta l Result [facility] [address] [place] [address], [place] [phone] * (ABNORMAL) Vitamin D 25 hydroxy (04/10/2024 1:19 PM EST) Vit D, 25-Hydroxy 19.3(L) 30.0 - 80.0 ng/mL LAB CHEMISTRY METHOD 04/10/2024 5:04 PM EST [facility] Blood Venous blood specimen / Unknown Venipuncture / Unknown 04/10/2024 1:19 PM EST 04/10/2024 1:19 PM EST Sherman WRIGHT LAB BLOOD ORDERABLES Modesta l Result [facility] [address] [place] [address], [place] [phone] * (ABNORMAL) Comprehensive metabolic panel (04/10/2024 1:19 PM EST) [facility] Signature Sodium 136 133 - 145 mmol/L LAB CHEMISTRY METHOD 04/10/2024 4:58 PM [facility] Potassium 4.3 3.5 - 5.5 mmol/L LAB CHEMISTRY METHOD 04/10/2024 4:58 PM [facility] Chloride 100 96 - 110 mmol/L LAB CHEMISTRY METHOD 04/10/2024 4:58 PM [facility] CO2 29 21 - 32 mmol/L LAB CHEMISTRY METHOD 04/10/2024 4:58 PM [facility] Anion Gap 7 3 - 11 LAB CHEMISTRY METHOD 04/10/2024 4:58 PM [facility] Glucose 131(H) 70 - 100 mg/dL LAB CHEMISTRY METHOD 04/10/2024 4:58 PM [facility] BUN 10 5 - 25 mg/dL LAB CHEMISTRY METHOD 04/10/2024 4:58 PM [facility] Creatinine 0.66 0.50 - 1.10 mg/dL LAB CHEMISTRY METHOD 04/10/2024 4:58 PM [facility] eGFR 88 >=60 mL/min/1. 73m2 LAB CHEMISTRY METHOD 04/10/2024 4:58 PM [facility] Comment:Calculation based on the??Chronic Kidney Disease Epidemiology Collaboration (CKD-EPI) equation refit??without adjustment for race. BUN/Creatinine Ratio 15.2 LAB CHEMISTRY METHOD 04/10/2024 4:58 PM [facility] Calcium 9.7 8.5 - 10.5 mg/dL LAB CHEMISTRY METHOD 04/10/2024 4:58 PM [facility] AST (SGOT) 13 10 - 42 unit/L LAB CHEMISTRY METHOD 04/10/2024 4:58 PM [facility] ALT (SGPT) 20 10 - 60 unit/L LAB CHEMISTRY METHOD 04/10/2024 4:58 PM EST [facility] Alkaline Phosphatase 87 42 - 121 unit/L LAB CHEMISTRY METHOD 04/10/2024 4:58 PM EST [facility] Total Protein 7.6 6.0 - 8.0 g/dL LAB CHEMISTRY METHOD 04/10/2024 4:58 PM EST [facility] Albumin 4.2 3.2 - 5.0 g/dL LAB CHEMISTRY METHOD 04/10/2024 4:58 PM [facility] Total Bilirubin 0.8 0.0 - 1.4 mg/dL LAB CHEMISTRY METHOD 04/10/2024 4:58 PM [facility] Blood Venous blood specimen / Unknown Venipuncture / Unknown 04/10/2024 1:19 PM EST 04/10/2024 1:19 PM EST Sherman WRIGHT LAB BLOOD ORDERABLES Modesta pardo Result Performing Organization Address [facility]/State/ZIP Co de Phone Number [facility] [address] [place] [address], * [place] ARTHROCENTESIS/ASPIRATION/INJECTION MAJOR JOINT/BURSA W/O U/S GUIDANCE (03/14/2024 9:00 AM EST) Narrative Lei Vee MD - 03/14/2024 9:00 AM EST ADRIANA Valle ? 03/14/2024 ??9:27 AM L Inj/Asp: L knee Indications: pain Details: 22 G needle, anterolateral approach Medications: 4 mL lidocaine 1 %; 80 mg methylPREDNISolone acetate 80 mg/mL Outcome: tolerated well, no immediate complications Informed Consent: ??Site: ??Knee ??Laterality: ??Left ??Relevant images/test results available and reviewed: yes ?Health status cleared: ??Yes ??Procedure/treatment, purpose, treatment alternatives, risks/potential complications and benefits explained: yes ?Risk/complications/benefits details: ??Risks include but are not limited to: The treatment may not accomplish the desired results. ??Additionally bleeding, infection, damage to tendon, nerve, cartilage, muscle; thinning or lightening of the skin in the area of injection; flushing or redness of the face, elevated blood pressure or blood sugar, allergic reaction, rash, increased pain Benefits include relief of inflammation and pain ??Patient questions answered: yes ?Patient agrees, verbalizes understanding, and wants to proceed: yes ?Consent given by: ??Patient ??Informed consent discussion completed by Physician/BRIANNA with patient: ?? Verbal ??Pre-procedure timeout performed: yes ?? Result [facility] Marcos WRIGHT IN CLINIC/BEDSIDE ORDERABLES Fin al Result * Falls Risk Assessment (07/25/2023) Falls Risk Assessment Abstracted Result [facility] Historical Provider MD HEALTH MAINTENANCE Final Result * Depression Screening (07/25/2023) Depression Screening Abstracted Result [facility] Historical Provider HEALTH MAINTENANCE Final Result * DXA BONE DENSITY STUDY 1+ SITS AXIAL SKEL (05/10/2018 11:23 AM EDT) Anatomical Region Laterality Modality Bone Densitometr y 05/02/2018 9:39 AM EDT Narrative 05/10/2018 4:52 PM EDT BONE DENSITY (DEXA) ? Lumbar Spine T-score is -0.9. ?? (SD relative to 20-29 y/o adult) Z-score is 1.6. ??(SD relative to age matched peers) This is considered normal by WHO criteria. Left Hip T-score is -2.6. Z-score is -0.5. This is considered osteoporosis by WHO criteria. There is mild rotatory levoscoliosis of the lumbar spine IMPRESSION: This patient is considered to have osteoporosis by WHO criteria. [facility] Department of Internal Medicine recommends using National Osteoporosis Foundation (NOF) guidelines in treatment decisions related to osteoporosis. NOF guidelines suggest considering treatment for postmenopausal women and men aged 50 or older presenting with the following: History of hip or vertebral fracture. T-score = -2.5 (DXA) at the femoral neck, total hip, or spine, after appropriate evaluation to exclude secondary causes. Low bone mass (T-score between -1.0 and -2.5 at the femoral neck or spine) AND a 10-year probability of a hip fracture = 3% OR a 10-year probability of a major osteoporosis-related fracture = 20% based on the [place]-adapted WHO algorithm Please note that all treatment decisions require clinical judgment and consideration of individual patient factors, including patient preferences, co-morbidities, previous drug use, risk factors not captured in the FRAX model (e.g., frailty, falls, vitamin D deficiency, increased bone turnover, interval significant decline in bone density) and possible under- or over-estimation of fracture risk by FRAX. Optional alternative screening schedule based on celine Mcdaniel., [facility] March 10, 2011 for patients with osteopenia (based on hip BMD T-score) is as follows: * ??advanced osteopenia (T scores -2.00 to -2.49), BMD testing every year * ??moderate osteopenia (T scores -1.50 to -1.99), BMD testing every 5 years mild osteopenia or normal BMD (T scores -1.50 and higher), BMD testing every 15 years Procedure Note Sally Yoder MD - 02/08/2022 BONE DENSITY (DEXA) Lumbar Spine T-score is -0.9. (SD relative to 20-29 y/o adult) Z-score is 1.6. (SD relative to age matched peers) This is considered normal by WHO criteria. Left Hip T-score is -2.6. Z-score is -0.5. This is considered osteoporosis by WHO criteria. There is mild rotatory levoscoliosis of the lumbar spine IMPRESSION: This patient is considered to have osteoporosis by WHO criteria. [facility] of Internal Medicinerecommends using National Osteoporosis Foundation (NOF) guidelines in treatment decisions related toosteoporosis. NOF guidelines suggest considering treatment for postmenopausal women and menaged 50 or older presenting with the following: History of hip or vertebral fracture. T-score = -2.5 (DXA) at the femoral neck, total hip, or spine, afterappropriate evaluation to exclude secondary causes. Low bone mass (T-score between -1.0 and -2.5 at the femoral neck or spine)AND a 10-year probability of a hip fracture = 3% OR a 10-year probability of a majorosteoporosis-related fracture = 20% based on the [place]-adapted WHO algorithm Please note that all treatment decisions require clinical judgment andconsideration of individual patient factors, including patient preferences, co- morbidities,previous drug use, risk factors not captured in the FRAX model (e.g., frailty, falls, vitaminD deficiency, increased bone turnover, interval significant decline in bone density) andpossible under- or over-estimation of fracture risk by FRAX. Optional alternative screening schedule based on eric Mcdaniel al., [place] 2011 for patients with osteopenia (based on hip BMD T-score) is as follows: * advanced osteopenia (T scores -2.00 to -2.49), BMD testing every year * moderate osteopenia (T scores -1.50 to -1.99), BMD testing every 5years mild osteopenia or normal BMD (T scores -1.50 and higher), BMD testingevery 15 years Sherman WRIGHT [facility] DXA PROCEDURES Final Result from Last 3 Months or Most Recently Relevant to Health Maintenance Insurance [place] [id number] MEDICARE [facility] Care Teams Mixing Supervisor Relationship Specialty Start Date End Date Sherman Johnson PA [address] [place] [address] PCP - General Internal Medicine 05/30/20
[2024-06-02 18:08] LABS: Vitamin D 25-OH, D2 <4 ng/mL; Vitamin D 25-OH, D3 35 ng/mL; Vitamin D 25-OH, Total 35 ng/mL (30-100)
== END 2024-05-29 12:05 | disposition home or self-care (01) ==
LOC: HO.LAB 12:04
PROVIDERS: PCP Physician Assistant Medical; Visit Provider Student in an Organized Health Care Education/Training Program
DX: R79.89 Other specified abnormal findings of blood chemistry (principal); M80.00XS Age-related osteoporosis with current pathological fracture, unspecified site, sequela
CPT/HCPCS: 36415; 80053; 82306; 83970

== ENCOUNTER 2024-06-07 11:20 | Outpatient (RCR) | payer MEDICARE, SELFPAY ==
[2024-06-07 11:30] VITALS: BP 130/89; PULSE 110; RESP 18; TEMP 36.6
[2024-06-07] MEDS: Zoledronic Acid/Mannitol-Water 5 MG/100 ML PGGYBK.BTL IV (11:44)
== END 2024-06-07 12:38 | disposition home or self-care (01) ==
LOC: HO.INF 11:20
PROVIDERS: Visit Provider Student in an Organized Health Care Education/Training Program
DX: M81.0 Age-related osteoporosis without current pathological fracture (principal)
CPT/HCPCS: 96374; J3489

== ENCOUNTER 2024-07-23 10:08 | Outpatient (AMB) | payer MEDICARE, SELFPAY ==
--- NOTE | 2024-07-23 10:16 | MHC.OFFVIS ---
Vital Signs 07/23/24 10:24 Height 5 ft 2 in Weight 156 lb 15.506 oz BMI 28.7 BP 130/80 Blood Pressure Location Rt brachial Position Sitting Pulse 76 Pulse Source Pulse Oximeter Pulse Oximetry (%) 98 Oxygen Delivery Method Room Air Intake Visit Reasons: follow up Intake Note: Patient presents for Osteoporosis follow up. Allergies Penicillins [PENICILLINS] Allergy (Severe, Verified 07/23/24 10:20) ANAPHYLAXIS latex [LATEX] Allergy (Unknown, Verified 07/23/24 10:20) UNKNOWN ibuprofen [From Motrin] Allergy (Verified 07/23/24 10:20) Swelling HPI Comments Details: Patient is an 83-year-old female with hypertension, osteoarthritis, psoriasis and osteoporosis here today for follow up Interval History: Last seen 05/17/24 with me. At that time she was following up for an urgent visit for hip pain after a fall. [facility] any fractures. She was given a 2 week course of tramadol to help with her pain and plan was for her to schedule her IV Reclast. Got her IV reclast 06/07/24 Doing better overall Took tramadol for a bit, that didn't help much with the pain Rheumatologic History: Patient establish care at [facility] 11/09/[address] Joseph Cummings. 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 Current Rheumatology Medication(s): IV Reclast since 2018 COUNT INCLUDES THE [facility] Medical History (Updated 01/23/24 @ 12:21 by Anayeli Sultana MD) History of gout Arthritis Psoriasis HTN (hypertension) Surgical History History of right knee joint replacement H/O shoulder surgery Social History Household Members Other:: lives alone Housing: Apartment Do you presently have visiting nurse or other home services: Yes (once a week) Alcohol intake: current Alcohol intake frequency: holidays/special occasions only Alcohol type: hard liquor Patient Tobacco Use Status: Never used Tobacco e-Cigarette/Vaping Use: Never Used Second Hand Smoke Exposure: No service: No Current occupational status: retired Current occupation: right handed Review of Systems Const Details: Review of Systems Constitutional: Denies fever, chills, weight loss ENT: Denies vision changes, eye pain or eye redness, dental caries, dry mouth GI: Denies nausea, vomiting, diarrhea, abdominal pain, change in BM Pulm: Denies SOB, DIAL, hemoptysis, wheezing Cards: Denies chest pain, palpitations Skin: Denies Raynaud's, rash, nail changes, photosensitivity, CYTOLOGY LABORATORY MANAGER: Denies headaches, weakness, paresthesias, recurrent falls MSK: as per HPI All other systems reviewed and are unremarkable except noted above Physical Exam Vital Signs: Last Vital Signs Pulse 76 07/23/24 10:24 BP 130/80 07/23/24 10:24 Pulse Ox 98 07/23/24 10:24 Oxygen Delivery Method Room Air 07/23/24 10:24 BMI result Body Mass Index 28.7 Vital signs reviewed Physical Examination CONSTITUITIONAL Patient alert and cooperative. Well appearing and in no apparent painful distress HEENT Conjunctiva and sclera clear. ?Pupils equal round and reactive to light. ?No lymphadenopathy. ?No tophi noted to the ears CHEST/RESPIRATORY SYSTEM Normal respiratory effort and able to speak in complete sentences. ?Clear to auscultation bilaterally. ?No crackles, rales, rhonchi, wheezes heard. CARDIAC SYSTEM Regular rate and rhythm. ?S1 and S2 heard no murmurs. ?Radial pulses intact bilaterally MSK Hands: ?Good gta strength bilaterally. ?No synovitis noted to the MCPs, PIPs or DIPs. ?No tenderness to palpation of these joints. Wrists: ?Full range of motion at the wrists without pain. ?No tenderness to palpation or synovitis noted to the wrists. Elbows: Full range of motion without pain. No tenderness, weakness, swelling, increased warmth or erythema. Shoulders: Limited active range of motion but full passive range of motion. Hips: Full range of motion without pain. Hip bursa: No tenderness to palpation Knees: ?Full range of motion. ?No tenderness, swelling, increased warmth or erythema. No effusion. Mild crepitations bilaterally. SKIN Skin intact without rashes. Results Reviewed Results Reviewed: Laboratory Tests 05/29/24 12:21 Sodium 139 Potassium 3.9 Chloride 106 Carbon Dioxide 27 BUN 11 Creatinine 0.66 AST 23 ALT 15 Alkaline Phosphatase 75 25-OH Vitamin D Total 35 Assessment & Plan Assessment & Plan (1) Osteoporosis: Comment: DEXA 09/07/23: Left femur neck -2.2, Left femur total -1.9, AP spine -0.1 Started Fosamax 04/2018 - gi side effects so it was stopped Zoledronic acid 09/2018; 03/2020; 02/2022 Code(s): M81.0 - Age-related osteoporosis without current pathological fracture Category: Medical Qualifiers: Osteoporosis type: age-related Presence of current pathological fracture: with current pathological fracture Encounter type: sequela Qualified Code(s): M80.00XS - Age-related osteoporosis with current pathological fracture, unspecified site, sequela Plan: #Osteoporosis with rib fractures Patient is an 84-year-old female with osteoporosis here today for follow up. Doing better today after her fall. No pain today. Got her IV Reclast 05/2024. Labs including vitamin-D levels are at goal Plan - IV Reclast 5mg yearly, next due 05/2025 - DEXA 08/2025 - RTC 6 months (2) Encounter for monitoring bisphosphonate therapy: Code(s): Z51.81 - Encounter for therapeutic drug level monitoring; Z79.83 - assisted (current) use of bisphosphonates Plan: #Long-term Use of Bisphosphonates Risks and benefits of bisphosphonates in the management of osteoporosis Benefits include improved bone density, decreased fracture risk Risks include atypical femoral fractures, GI upset, esophageal strictures Contraindicated in patients with a creatinine clearance < 30 to 35 ml/min Keep vitamin-D at least 35 ng/mL (3) Polyarticular osteoarthritis: Code(s): M15.9 - Polyosteoarthritis, unspecified Plan I spent 20 minutes reviewing the record and labs, seeing the patient, discussing the treatment plan and documenting in the medical record ? Coding Level of Care Code Est Pt Level 3 (50380) Diagnoses Age-related osteoporosis with current pathological fracture, sequela M80.00XS Osteoporosis type: age-related Presence of current pathological fracture: with current pathological fracture Encounter type: sequela Encounter for monitoring bisphosphonate therapy Z51.81; Z79.83 Polyarticular osteoarthritis M15.9
[2024-07-23 10:24] VITALS: BP 130/80; PULSE 76; O2SAT 98; BMI 28.7
--- OUTSIDE RECORDS SUMMARY | 2024-07-23 11:37 | XMS_ITS | Clinical Summary ---
Author Organization [facility] [address] [place] [address] [place] [phone] Phone Care Team Providers Care Event Executive Name Role Phone Sherman Johnson Primary Care Provider [phone] Allergies Active Allergy Reactions Criticality Noted Date Comments Bupropion Hcl (Smoking Deter) 02/03/2018 Other Reaction(s): Rash/Dermatitis Latex Anaphylaxis High 09/24/2009 Nsaids (Non-Steroidal Anti-Inflammatory Drug) Anaphylaxis High 06/14/2017 Penicillins Anaphylaxis High 09/24/2009 Reaction occurred in 2009 Cetirizine Itching 03/14/2024 Medications azelastine (ASTELIN) 137 mcg (0.1 %) nasal spray 2 Sprays by Each Nare route 2 times daily. Use in each nostril as directed 1 Active cholecalciferol (VITAMIN D-3) 25 mcg (1,000 unit) tablet Take 1 Tablet by mouth daily. 2 Active clotrimazole (LOTRIMIN) 1 % cream Apply to skin and toenails daily for 12 weeks 2 Active hydrocortisone valerate (WEST-BRENT) 0.2 % ointment Apply to affected areas on body 2 times a day for 7 days. Avoid face and groin 3 Active triamcinolone (KENALOG) 0.025 % cream Apply to affected areas twice daily as needed 3 Active zoledronic acid (RECLAST) 5 mg/100 mL piggyback Inject 5 mg into the vein Once. 1 Active multivit-min/ir on fum/folic ac (ONE-A-DAY WOMEN'S COMPLETE ORAL) Take by mouth. Active multivitamin tablet Take 1 tablet by mouth 1 (one) time each day. 5 Active lisinopriL (PRINIVIL,ZESTR IL) 30 mg tablet Take 1 tablet (30 mg total) by mouth 1 (one) time each day. Active cyanocobalamin (VITAMIN B-12) 1,000 mcg tablet Take 1 tablet (1,000 mcg total) by mouth 1 (one) time each day. 5 Active busPIRone (BUSPAR) 5 mg tablet Take 1 tablet (5 mg total) by mouth 2 (two) times a day. 60 each 11 5 Active baclofen (LIORESAL) 10 mg tablet Take 1 tablet (10 mg total) by mouth 3 (three) times a day. 270 each 3 5 Active oxyCODONE-aceta minophen (PERCOCET) 10-325 mg per tabletIndicatio ns:Psoriatic arthritis ([facility] V24, CMS/[facility] V28) Take 1 tablet by mouth every 6 (six) hours if needed for moderate pain for up to 28 days. for pain Max Daily Amount: 4 tablets 112 tablet 5 08/01/19 25 Active zolpidem (AMBIEN) 5 mg tablet Take 1 tablet (5 mg total) by mouth at bedtime as needed for sleep for up to 28 days. for insomnia Max Daily Amount: 5 mg 28 tablet 5 08/01/19 25 Active fluticasone propionate (FLONASE) 50 mcg/actuation nasal spray INHALE 2 SPRAYS IN EACH NOSTRIL ONCE DAILY 16 g 5 5 Active oxyCODONE-aceta minophen (PERCOCET) 10-325 mg per tabletIndicatio ns:Psoriatic arthritis ([facility] V24, CMS/[facility] V28) Take 1 tablet by mouth every 6 (six) hours if needed for moderate pain for up to 28 days. for pain Max Daily Amount: 4 tablets 112 tablet 5 07/04/19 25 Discontinu ed(Reorder ) zolpidem (AMBIEN) 5 mg tablet Take 1 tablet (5 mg total) by mouth at bedtime as needed for sleep for up to 28 days. for insomnia Max Daily Amount: 5 mg 28 tablet 5 07/04/19 25 Discontinu ed(Reorder ) Active Problems Problem Noted Date Diagnosed Date Depression 12/14/2023 Hypertension 12/14/2023 Psoriatic arthritis ([facility] V24, [facility] V28) 0 03/22/2020 Overview (12/14/2023): 02/2020: methotrexate added to [...] 12:00 PM EDT Office Visit Adult Medicine [address] [phone] Isaac Pelletier MD Chronic midline low back pain with left-sided sciatica (Primary Dx); Primary hypertension 04/30/2024 Telephone Adult Medicine [address] [phone] Sherman Johnson PA Medication from Last 3 Months Immunizations Name Administration [...] CHOLECYSTECTOMY APPENDECTOMY PROCEDURE: HISTORICAL APPENDECTOMY SECTION PROCEDURE: CA DELIVERY ONLY COLONOSCOPY 2006 PROCEDURE: HISTORICAL COLONOSCOPY; COMMENT: reportedly normal ROTATOR CUFF REPAIR approx 2004 PROCEDURE: HISTORICAL ROTATOR CUFF REPAIR; COMMENT: bilateral TOTAL KNEE ARTHROPLASTY 2010 PROCEDURE: HISTORICAL TOTAL KNEE REPLACE; COMMENT: right CATARACT EXTRACTION PROCEDURE: HISTORICAL CATARACT REMOVAL; COMMENT: bilateral OTHER SURGICAL HISTORY PROCEDURE: CA RADIAL KERATOTOMY; COMMENT: right Medical History Medical [...] ty (BMI 30.0-34.9) Psoriasis DX:Psoriasis Psoriatic arthritis (CMS/HCC V24, CMS/HCC V28) 03/22/2020 DX:Psoriatic arthritis (HCC) Solitary cyst of breast DX:Solit [...] x2, healthy Brother 3 Father (Age 65) [place] in 70's Maternal Grandfather Maternal Grandmother Mother [...] 05/08/2024 11:49 AM EDT Plan of Treatment Upcoming Encounters Date Type Department Care Team (Late st Contact Info) Description 07/25/2024 8:30 AM EDT Office Visit Adult Medicine [address] [phone] Sherman Johnson, ADRIANA [address] [place] [address] 09/24/2024 10:00 AM EDT Office Visit Orthopedic Surgery - [place] [address] [facility] [address] [place] [phone] Jonathan Harp, DPM [address] [id number] Health Maintenance Due Date Last Done Comments [...] Procedure Name Priority Date/Time Associated Diagnosis Comments EXTERNAL CLINICAL LAB 05/29/2024 EXTERNAL CLINICAL LAB 05/29/2024 COMPREHENSIVE METABOLIC PANEL Routine 04/10/2024 1:19 PM EST Primary hypertension Anxiety Depression, unspecified depression type Hyperthyroidism, subclinical Obesity (BMI 30.0-34.9) Osteoporosis without current pathological fracture, unspecified osteoporosis type Psoriatic arthritis (CMS/HCC V24, CMS/HCC V28) Vitamin D deficiency Fall, initial encounter Rib injury Buttock pain LIPID PANEL WITH REFLEX TO DIRECT LDL Routine 04/10/2024 1:19 PM EST Primary hypertension Anxiety Depression, unspecified depression type Hyperthyroidism, subclinical Obesity (BMI 30.0-34.9) Osteoporosis without current pathological fracture, unspecified osteoporosis type Psoriatic arthritis (CMS/HCC V24, CMS/HCC V28) Vitamin D deficiency Fall, initial encounter Rib injury Buttock pain DEPRESSION SCREENING Routine 07/25/2023 FALLS RISK ASSESSMENT Routine 07/25/2023 DXA BONE DENSITY STUDY 1+ SITS AXIAL SKEL Routine 05/10/2018 11:23 AM EDT Encounter for screening for osteoporosis from Last 3 Months or Most Recently Relevant to Health Maintenance Results * External clinical lab (05/29/2024) Only the most recent of2 resultswithin the time period is included. us Provider [facility] LAB BLOOD ORDERABLES Fin al Result * (ABNORMAL) Lipid panel with reflex to direct LDL (04/10/2024 1:19 PM EST) Cholesterol 191 0 - 200 mg/dL LAB CHEMISTRY METHOD 04/10/2024 4:58 PM [facility] Triglycerides 164(H) 0 - 150 mg/dL LAB CHEMISTRY METHOD 04/10/2024 4:58 PM [facility] HDL 63 >=40 mg/dL LAB CHEMISTRY METHOD 04/10/2024 4:58 PM [facility] LDL Calculated 95 0 - 100 mg/dL LAB CHEMISTRY METHOD 04/10/2024 4:58 PM [facility] VLDL Cholesterol J Carlos 32.8 mg/dL LAB CHEMISTRY METHOD 04/10/2024 4:58 PM [facility] Non HDL Chol. (LDL+VLDL) 128 <145 mg/dL LAB CHEMISTRY METHOD 04/10/2024 4:58 PM [facility] Chol/HDL Ratio 3.0 0.0 - 4.4 LAB CHEMISTRY METHOD 04/10/2024 4:58 PM [facility] Blood Venous blood specimen / Unknown Venipuncture / Unknown 04/10/2024 1:19 PM EST 04/10/2024 1:19 PM EST Sherman WRIGHT LAB BLOOD ORDERABLES Modesta l Result [facility] [address] [place] [address], * (ABNORMAL) Comprehensive metabolic panel (04/10/2024 1:19 PM EST) Sodium 136 133 - 145 mmol/L LAB CHEMISTRY METHOD 04/10/2024 4:58 PM [facility] Potassium 4.3 3.5 - 5.5 mmol/L LAB CHEMISTRY METHOD 04/10/2024 4:58 PM [facility] Chloride 100 96 - 110 mmol/L LAB CHEMISTRY METHOD 04/10/2024 4:58 PM [facility] CO2 29 21 - 32 mmol/L LAB CHEMISTRY METHOD 04/10/2024 4:58 PM [facility] Anion Gap 7 3 - 11 LAB CHEMISTRY METHOD 04/10/2024 4:58 PM [facility] Glucose 131(H) 70 - 100 mg/dL LAB CHEMISTRY METHOD 04/10/2024 4:58 PM [facility] BUN 10 5 - 25 mg/dL LAB CHEMISTRY METHOD 04/10/2024 4:58 PM [facility] Creatinine 0.66 0.50 - 1.10 mg/dL LAB CHEMISTRY METHOD 04/10/2024 4:58 PM [facility] eGFR 88 >=60 mL/min/1. 73m2 LAB CHEMISTRY METHOD 04/10/2024 4:58 PM [facility] Comment:Calculation based on the??Chronic Kidney Disease Epidemiology Collaboration (CKD-EPI) equation refit??without adjustment for race. BUN/Creatinine Ratio 15.2 LAB CHEMISTRY METHOD 04/10/2024 4:58 PM [facility] Calcium 9.7 8.5 - 10.5 mg/dL LAB CHEMISTRY METHOD 04/10/2024 4:58 PM [facility] AST (SGOT) 13 10 - 42 unit/L LAB CHEMISTRY METHOD 04/10/2024 4:58 PM [facility] ALT (SGPT) 20 10 - 60 unit/L LAB CHEMISTRY METHOD 04/10/2024 4:58 PM [facility] Alkaline Phosphatase 87 42 - 121 unit/L LAB CHEMISTRY METHOD 04/10/2024 4:58 PM [facility] Total Protein 7.6 6.0 - 8.0 g/dL LAB CHEMISTRY METHOD 04/10/2024 4:58 PM [facility] Albumin 4.2 3.2 - 5.0 g/dL LAB CHEMISTRY METHOD 04/10/2024 4:58 PM [facility] Total Bilirubin 0.8 0.0 - 1.4 mg/dL LAB CHEMISTRY METHOD 04/10/2024 4:58 PM EST [facility] Blood Venous blood specimen / Unknown Venipuncture / Unknown 04/10/2024 1:19 PM EST 04/10/2024 1:19 PM EST Sherman WRIGHT LAB BLOOD ORDERABLES Modesta l Result [facility] [address] [place] [address], [place] [phone] * Falls Risk Assessment (07/25/2023) Falls Risk Assessment Abstracted Historical Provider MD HEALTH MAINTENANCE Final Result * Depression Screening (07/25/2023) Depression Screening Abstracted Historical Provider MD HEALTH MAINTENANCE Final Result * DXA BONE [...] to have osteoporosis by WHO criteria. The [facility] Department of Internal Medicine recommends using [...] screening schedule based on celine Mcdaniel., [facility] March 10, 2011 for patients [...] to have osteoporosis by WHO criteria. The [facility] Department of Internal Medicinerecommends using National [...] alternative screening schedule based on celine Mcdaniel., NEJMJanuary 2011 for patients with osteopenia (based on hip BMD T-score) is as follows: * advanced osteopenia (T scores -2.00 to -2.49), BMD testing every year * moderate osteopenia (T scores -1.50 to -1.99), BMD testing every 5years mild osteopenia or normal BMD (T scores -1.50 and higher), BMD testingevery 15 years Sherman WRIGHT [facility] DXA PROCEDURES Final Result from Last 3 Months or Most Recently Relevant to Health [place] [id number] MEDICARE [facility] Care Teams Event Executive Relationship Specialty Start Date End Date Sherman Johnson PA [address] [place] [address] PCP - General Internal Medicine 05/30/20
== END 2024-07-23 10:49 | disposition home or self-care (01) ==
LOC: HO.RHE 10:08
PROVIDERS: PCP Physician Assistant Medical; Visit Provider Student in an Organized Health Care Education/Training Program
DX: M80.00XS Age-related osteoporosis with current pathological fracture, unspecified site, sequela (principal); Z51.81 Encounter for therapeutic drug level monitoring; Z79.83 Long term (current) use of bisphosphonates; M15.9 Polyosteoarthritis, unspecified
CPT/HCPCS: 99213

== ENCOUNTER → 2024-07-23 10:08 | Outpatient (BNVA) | payer MEDICARE, SELFPAY | PROVIDERS: PCP Physician Assistant Medical; Visit Provider Student in an Organized Health Care Education/Training Program | DX: M80.00XS Age-related osteoporosis with current pathological fracture, unspecified site, sequela (principal); Z51.81 Encounter for therapeutic drug level monitoring; Z79.83 Long term (current) use of bisphosphonates; M15.9 Polyosteoarthritis, unspecified | CPT/HCPCS: 99212 ==

== ENCOUNTER 2024-12-26 10:06 | Emergency (ER) | payer MEDICARE, SELFPAY ==
--- NOTE | ~2024-12-26 | XR_ITS ---
EXAMINATION: XR KNEE, RIGHT CLINICAL INFORMATION: pain, injury COMPARISON: None available. TECHNIQUE: AP lateral and oblique views of the right knee. FINDINGS: There is a large volume soft tissue contusion in the medial aspect of the knee. Metallic prosthesis with a femoral and tibial components well seated in the osseous structures. The prosthesis intact. Normal alignment. No acute cortical disruption. Degenerative changes in the patella and the lateral compartment. Osteopenia versus osteoporosis. Vascular calcifications. XR/XR knee RT 4V IMPRESSION: Total right knee arthroplasty prosthesis, intact without fracture or dislocation. Large volume soft tissue contusion, medial aspect of the knee. Electronically signed by: Omi Aquino MD 12/26/2024 11:07 AM ONEL ANTONIO
--- NOTE | ~2024-12-26 | CT_ITS ---
EXAMINATION: CT CHEST WITHOUT CONTRAST CLINICAL INFORMATION: Status post fall. Right hip pain. COMPARISON: None available. TECHNIQUE: Multidetector volumetric CT imaging of the chest was done. Axial MIP volume rendering provided. Sagittal and coronal reformatted images were obtained. This CT examination was performed using dose optimization techniques as appropriate, variously including the following: *Automated exposure control *Adjustment of mA and/or kV according to patient size (this includes techniques or standardized protocols for targeted exams where dose is matched to indication/reason for exam; i.e. extremities or head) *Use of iterative reconstruction technique DLP: 338 mGy-cm FINDINGS: INTERVENTIONAL RADIOLOGIST: Patient's large body habitus. Radiopaque anchors in the humerus, bilaterally. Vascular clips in the right upper quadrant abdomen. Multilevel spondylosis, thoracolumbar spine with S-shaped curvature. Heart silhouette size is normal. Right upper extremity at the side of the body. Left upper extremity at the side of the head. LUNGS: No consolidation. No bronchiectasis. No honeycombing. No gross pulmonary nodule. Airway is patent. MEDIASTINUM: No pneumomediastinum. No hemomediastinum. Calcified plaques in the thoracic aortic wall and its main branches. No gross aneurysm. No pericardial effusion. No hemopericardium. Nonspecific mild prominent mediastinal lymph nodes. Calcified plaques in the coronary arteries. Prominent/engorged right thyroid lobe. CORONARY ARTERY CALCIFICATION: Calcified plaques. PLEURA: No pneumothorax. No pleural effusion. No hemothorax. No calcified pleural plaques. AXILLA: No lymphadenopathy. UPPER ABDOMEN: 9 mm hypodensity in the lower pole left kidney. Status post cholecystectomy. Small hiatal hernia. Vascular calcifications, aorta and main renal arteries splenic artery. 22 mm round partially calcified abnormality in the splenic hilum. OSSEOUS STRUCTURES: Multilevel spondylosis. Probable old compression deformity at representing 70% volume loss at T12. Multilevel superior endplate compression deformities throughout the axial skeleton. Sternum is intact. The included clavicles and scapula are intact. Multiple Old healed rib fractures, bilaterally CT/CT chest wo IV con IMPRESSION: No acute intrathoracic organ injury. No acute fracture. Coronary artery disease and atherosclerosis disease. 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 Multiple and bilateral old healed rib fractures. Old compression deformity, T12. Fleischner guidelines were followed. Electronically signed by: Omi Aquino MD 12/26/2024 12:13 PM EST
[2024-12-26 10:09] VITALS: BP 154/102; BP 184/91; PULSE 88; PULSE 99; RESP 18; TEMP 36.9; O2SAT 98; O2SAT 99; BMI 30.6
--- NOTE | 2024-12-26 10:10 | ED_ITS ---
HPI - General Adult General Chief complaint: Fall Stated complaint: FALL,R KNEE PAIN/SWELLING PER EMS Time Seen by Provider: 12/26/24 10:10 Source: patient and EMS Mode of arrival: EMS Limitations: no limitations History of Present Illness ED Provider: Veronica Jacob PA-C HPI narrative: Patient is an 84 year old assigned female at with a history of HTN, osteoporosis, s/p right knee replacement, gout, anxiety, and psoriasis presenting to the emergency department today with right rib pain and right knee pain after a fall. Patient states that she tripped over some cement at the gas station and landed on her right side. Patient states that she did not hit her head or have any loss of consciousness. Patient states that she is not on any anti-coagulation medication. Patient denies any other complaints at this time. Related Data Home Medications ?Medication ?Instructions ?Recorded ?Confirmed amlodipine 5 mg tablet 5 mg PO DAILY 05/29/2005/17 azelastine 0.05 % eye drops 1 drp ophthalmic (eye) BID PRN itch 05/29/20 05/17/24 zolpidem 5 mg tablet 5 mg PO BEDTIME PRN insomnia 05/29/20 05/17/24 fluticasone propionate 50 spray intranasal 01/10/23 mcg/actuation nasal spray,suspension paroxetine HCl 20 mg tablet 20 mg PO DAILY 01/10/23 losartan 50 mg tablet 50 mg PO DAILY 07/18/2304/21 secukinumab 150 mg/mL subcutaneous 300 mg subcut Q4W 1 03/25/23 05/17/24 pen injector baclofen 10 mg tablet 10 mg PO TID 05/17/24 buspirone 5 mg tablet 5 mg PO BID 05/17/24 5 hydroxyzine HCl 10 mg tablet mg PO 05/17/24 05/17/24 Previous Rx's ?Medication ?Instructions ?Recorded zoledronic acid 5 mg/100 mL in See Rx Instructions IV .yearly 01/23/24 mannitol 5 %-water intravenous piggybck (Reclast) tramadol 50 mg tablet 50 mg PO BID pain #28 tabs 0 05/17/24 Allergies Allergy/AdvReac Type Severity Reaction Status Date / Time Penicillins (PENICILLINS) Allergy Severe ANAPHYLAXIS Verified 12/26/24 10:15 latex (LATEX) Allergy Unknown UNKNOWN Verified 12/26/24 10:15 ibuprofen (From Motrin) Allergy Swelling Verified 12/26/24 10:15 Review of Systems Constitutional: Constitutional: Reports as per HPI Eyes: Eyes: Reports as per HPI ENT: Reports as per HPI Cardiovascular: Cardiovascular: Reports as per HPI Respiratory: Respiratory: Reports as per HPI Gastrointestinal: Gastrointestinal: Reports as per HPI Genitourinary: Genitourinary: Reports as per HPI Musculoskeletal: Musculoskeletal: Reports as per HPI Integumentary/Breasts: Skin/Breast: Reports as per HPI Neurologic: Reports as per HPI Psychiatric: Psychiatric: Reports as per HPI Endocrine: Endocrine: Reports as per HPI Hematologic/Lymphatic: Hematologic/Lymphatic: Reports as per HPI Allergic/Immunologic: Allergic/Immunologic: Reports as per HPI [facility] Past Medical History Attestation statement: The following information was validated with the patient. Source: old records reviewed and nursing notes reviewed Medical History History of gout Arthritis Psoriasis HTN (hypertension) Surgical History History of right knee joint replacement H/O shoulder surgery Social History Social History Household Members Other:: lives alone Housing: Apartment Do you presently have visiting nurse or other home services: Yes (once a week) Alcohol intake: current Alcohol intake frequency: holidays/special occasions only Alcohol type: hard liquor Patient Tobacco Use Status: Never used Tobacco e-Cigarette/Vaping Use: Never Used Second Hand Smoke Exposure: No Advance Directives: No Advance Directives Information Provided: Yes service: No Current occupational status: retired Current occupation: right handed Physical Exam ED Vital Signs: Vital Signs - 24 hr 12/26/24 10:09 12/26/24 12:33 Temperature 98.4 F 98.1 F Pulse Rate 99 78 Respiratory Rate 18 Blood Pressure 184/91 H 151/75 H Pulse Oximetry 99 97 Oxygen Delivery Method Room Air Room Air BMI result Body Mass Index 30.6 Const General: cooperative, no acute distress, alert and awake Nutritional Appearance: well nourished Orientation/consciousness: patient oriented x3 HENMT Head: Yes normal to inspection and Yes atraumatic Ears: hearing grossly normal bilaterally and external ears normal General nose exam: Normal external nose present, no nasal discharge noted and no epistaxis Face and sinus: Yes normal facial exam, No abrasion and No laceration Mouth: Normal oral and palatal mucosa present, no drooling and no muffled voice Eyes General: appearance normal, both eyes and all related structures Periorbital: periorbital findings normal Eyelids: Yes eyelids normal Conjunctivae: conjunctivae normal Pupils: Equal, round and reactive pupils present EOM: EOMs intact bilaterally Neck Neck: Yes normal visual inspection and Yes full ROM Resp Effort & Inspection: normal respiratory effort and able to speak in complete sentences Neuro General: patient oriented x3, moves all extremities and CN's II-XI intact bilaterally Cranial nerves: Yes Equal, round and reactive pupils present Cognition (Neuro): normal cognition Extrem Other: right knee swollen with small abrasion at the 8 o'clock position - no gaping areas, no active bleeding General: Yes full ROM and Yes capillary refill normal Psych Appearance: grossly normal Mental Status: mental status grossly normal Affect: normal affect Attitude: cooperative Thought process: Normal thought process present Thought content: Normal thought content present Insight: Good insight present (Psych) Procedures Orthopedic Splinting/Casting R knee effusion: Side: right Lower Extremity Injury Location: knee Lower Extremity Immobilizer: Andrés wrap Medical Decision Making Medical Decision Making MDM Narrative: Patient is an 84 year old assigned female at with a history of HTN, osteoporosis, s/p right knee replacement, gout, anxiety, and psoriasis presenting to the emergency department today with right rib pain and right knee pain after a fall. Patient's physical exam was as noted in the physical exam portion of this note. Patient's right knee was swollen with a small abrasion and no gaping areas or active bleeding. Patient's right knee x-ray showed a joint effusion but no fracture or issue with hardware. Patient's CT of the chest showed multiple old rib fractures and an incidental finding of a 22mm calcified splenic artery aneurysm. Patient's clinical presentation is most consistent with a right knee joint effusion + abrasion, right rib contusion, and incidental finding of splenic artery aneurysm. I spoke with my attending physician, Dr. Garrison, who recommended consulting with the vascular surgeon qa automation architect about this incidental finding. I spoke with Dr. Ruby, the vascular surgeon qa automation architect, who recommended outpatient follow up. I explained my physical exam findings as well as all test results to the patient. I answered all questions asked by the patient. Patient's right knee was placed in an ANDRÉS Wrap, without incident. Patient's RLE PMS was intact prior to and after ANDRÉS wrap placement. I stressed the importance of the patient taking her medication as directed (either prescribed or as the over the counter packaging recommends). I stressed the importance of the patient following up with her primary care provider, the orthopedic team for her joint effusion of the right knee, and the vascular surgeon for her incidental finding as noted above. I stressed the importance of the patient returning to the emergency department immediately if her symptoms were to worsen or if she were to develop any dizziness, shortness of breath, difficulty breathing, chest pain, blurry vision, loss of vision, nausea, vomiting, abdominal pain, fever, chills, back pain, or any other complaints. Patient verbalized agreement and understanding with this treatment plan and discharge. Differential Diagnosis Differential Diagnoses: The differential diagnosis associated with the presentation includes Knee contusion Knee abrasion Joint effusion Fall Rib fracture Rib contusion Admission/Observation Consideration of admission/observation: Escalation of care including admission/observation considered Patient would have been admitted to the hospital had her work up had any findings where hospital admission was appropriate and her clinical presentation warranted hospital admission. Consult Healthcare Provider Management of the patient was discussed with: Wire Weaver (spoke with my attending physician and the vascular surgeon as noted in the MDM Rationale portion of this note. ) Independent Interpretation I performed an independent interpretation of an: Plain X-Ray and CT Scan Interpretation: My interpretation is in agreement with the radiologist's impression of these imaging studies. Report Number: [id number]: Total DLP = 338.00 mGy-cm Reason for Exam: right hip pain s/p fall EXAMINATION: CT CHEST WITHOUT CONTRAST CLINICAL INFORMATION: Status post fall. Right hip pain. COMPARISON: None available. TECHNIQUE: Multidetector volumetric CT imaging of the chest was done. Axial MIP volume rendering provided. Sagittal and coronal reformatted images were obtained. This CT examination was performed using dose optimization techniques as appropriate, variously including the following: *Automated exposure control *Adjustment of mA and/or kV according to patient size (this includes techniques or standardized protocols for targeted exams where dose is matched to indication/reason for exam; i.e. extremities or head) *Use of iterative reconstruction technique DLP: 338 mGy-cm FINDINGS: MOTOR COACH CHAUFFEUR: Patient's large body habitus. Radiopaque anchors in the humerus, bilaterally. Vascular clips in the right upper quadrant abdomen. Multilevel spondylosis, thoracolumbar spine with S-shaped curvature. Heart silhouette size is normal. Right upper extremity at the side of the body. Left upper extremity at the side of the head. LUNGS: No consolidation. No bronchiectasis. No honeycombing. No gross pulmonary nodule. Airway is patent. MEDIASTINUM: No pneumomediastinum. No hemomediastinum. Calcified plaques in the thoracic aortic wall and its main branches. No gross aneurysm. No pericardial effusion. No hemopericardium. Nonspecific mild prominent mediastinal lymph nodes. Calcified plaques in the coronary arteries. Prominent/engorged right thyroid lobe. CORONARY ARTERY CALCIFICATION: Calcified plaques. PLEURA: No pneumothorax. No pleural effusion. No hemothorax. No calcified pleural plaques. AXILLA: No lymphadenopathy. UPPER ABDOMEN: 9 mm hypodensity in the lower pole left kidney. Status post cholecystectomy. Small hiatal hernia. Vascular calcifications, aorta and main renal arteries splenic artery. 22 mm round partially calcified abnormality in the splenic hilum. OSSEOUS STRUCTURES: Multilevel spondylosis. Probable old compression deformity at representing 70% volume loss at T12. Multilevel superior endplate compression deformities throughout the axial skeleton. Sternum is intact. The included clavicles and scapula are intact. Multiple Old healed rib fractures, bilaterally CT/CT chest wo IV con IMPRESSION: No acute intrathoracic organ injury. No acute fracture. Coronary artery disease and atherosclerosis disease. 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 Multiple and bilateral old healed rib fractures. Old compression deformity, T12. Fleischner guidelines were followed. Electronically signed by: Omi Aquino MD 12/26/2024 12:13 PM [facility] Dictated By: Omi Suresh MD Signed By: Electronically signed by Omi Dozier MD 12/26/24 1213 Reason for Exam: pain, injury EXAMINATION: XR KNEE, RIGHT CLINICAL INFORMATION: pain, injury COMPARISON: None available. TECHNIQUE: AP lateral and oblique views of the right knee. FINDINGS: There is a large volume soft tissue contusion in the medial aspect of the knee. Metallic prosthesis with a femoral and tibial components well seated in the osseous structures. The prosthesis intact. Normal alignment. No acute cortical disruption. Degenerative changes in the patella and the lateral compartment. Osteopenia versus osteoporosis. Vascular calcifications. XR/XR knee RT 4V IMPRESSION: Total right knee arthroplasty prosthesis, intact without fracture or dislocation. Large volume soft tissue contusion, medial aspect of the knee. Electronically signed by: Omi Aquino MD 12/26/2024 11:07 AM EST Wo rkstation: [id number] Dictated By: Omi Suresh MD Signed By: Electronically signed by Omi Dozier MD 12/26/24 1107 Radiology Impression Discussion of test interpretation with radiology: I have reviewed the radiologist's reading. Independent Historian Clinical information obtained from an independent historian. History obtained from or confirmed by: EMS (EMS provided additional history and confirmed the history provided by the patient.) Critical Care Time Critical Care Time Critical Care Time: Yes Total Critical Care Time: 32 Attestation: I spent 32 minutes of Critical Care Time with this patient. This does not include time spent on separately reported billable procedures. Discharge Plan Discharge Clinical Impression: Fall, Contusion of rib, Aneurysm of splenic artery, Joint effusion Patient Disposition: Home, Self-Care Instructions: Fall Prevention for Older Adults (ED), Contusion in Adults (ED), Rib Contusion (ED) Additional Instructions: Your examination today showed a right knee joint effusion for which we put an ANDRÉS wrap on for. If at any time you have any numbness / tingling / discoloration or change in sensation to the right lower extremity - remove the ANDRÉS wrap immediately. Follow up with the orthopedic team for this. Your CT scan of the chest showed several OLD rib fractures and an incidental finding of a calcified splenic artery. It is crucial you follow up with a [facility] ular surgeon on an outpatient basis for this. IF you are prescribed home medications and/or you are taking over the counter medications at home - it is very important you continue to do so as prescribed / directed unless told otherwise. Follow up with your primary care provider. Return to the emergency department immediately if your symptoms worsen or if you develop any numbness, tingling, dizziness, shortness of breath, difficulty breathing, chest pain, blurry vision, loss of vision, nausea, vomiting, abdominal pain, fever, chills, back pain, or any other complaints. Please see the information below about our Patient Portal. If you are not yet enrolled in the [facility] Patient Portal, you will receive an enrollment email invitation following your visit to any [facility] care setting. You may also self-enroll in the Patient Portal by visiting our website: [email or web address] The following information is required to access the Patient Portal: - Your [facility] Medical Record Number - Your personal home email address (must match what is in your electronic medical record, Registration staff can assist with this) - Name - Date of Capabilities of the Patient Portal: - Message some providers - View upcoming appointments - Access your health summary, medical history, and visit history - View current conditions and allergies - View procedure and lab results - View your medications, including guidelines, side effects, and precautions - Complete pre-appointment questionnaires requested by your provider - Ready summary reports of your office visits and procedures To access the Patient Portal Mobile [employer], follow these directions: - Search Private Company in the [employer] Store or [employer] Store - Download the [employer] - Search for [facility] - Enter your login/password Prescriptions: No Action amlodipine 5 mg tablet 5 mg PO DAILY zolpidem 5 mg tablet 5 mg PO BEDTIME PRN (Reason: insomnia) azelastine 0.05 % drops 1 drp ophthalmic (eye) BID PRN (Reason: itch) losartan 50 mg tablet 50 mg PO DAILY baclofen 10 mg tablet 10 mg PO TID hydroxyzine HCl 10 mg tablet PO buspirone 5 mg tablet 5 mg PO BID tramadol 50 mg tablet 50 mg PO BID Qty: 28 0RF paroxetine HCl 20 mg tablet 20 mg PO DAILY fluticasone propionate 50 mcg/actuation spray,suspension intranasal secukinumab 150 mg/mL pen injector 300 mg subcut Q4W zoledronic [id number] [Reclast] 5 mg/100 mL piggyback See Rx Instructions IV .yearly Rx Instructions: 5mg intravenously YEARLY; Referrals: [facility] Orthopedic Surgeons [Provider Group] Referral Note: Call to establish and follow up with the orthopedic team for your right knee joint effusion. [facility] Vascular Services [Provider Group, Vascular Surgery] Referral Note: Call to establish and follow up with a vascular specialist for your calcified splenic artery aneurysm. Sherman Johnson PA [Primary Care Provider, Internal Medicine] Print Language: Italian
--- NOTE | 2024-12-26 11:48 | PC.NURSE ---
Patient requested & given bedpan. Call valdes within reach. Care ongoing by this RN.
--- NOTE | 2024-12-26 12:32 | PC.NURSE ---
Some urine spilled out of side of bedpan. Hygiene care provided, linens changed. CT scan results pending, then likely discharge (per ADRIANA Corbett). Swelling noted to right knee. Care ongoing by this RN.
[2024-12-26 12:33] VITALS: BP 151/75; PULSE 78; TEMP 36.7; O2SAT 97
[2024-12-26] MEDS: oxyCODONE HCl Immed Release 5 MG TABLET PO (13:28)
[2024-12-26 13:43] VITALS: BP 151/75; PULSE 78; RESP 16; TEMP 36.7; O2SAT 97
--- OUTSIDE RECORDS SUMMARY | 2024-12-26 13:58 | XMS_ITS | Clinical Summary ---
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 2 Active hydrocortisone valerate (WEST-BRENT) 0.2 % ointment 3 Active triamcinolone (KENALOG) 0.025 % cream 3 Active zoledronic acid (RECLAST) 5 mg/100 mL piggyback Inject 5 mg into the vein Once. 1 Active multivit-min/ir on fum/folic ac (ONE-A-DAY WOMEN'S COMPLETE ORAL) Take by mouth. Active multivitamin tablet Take 1 tablet by mouth 1 (one) time each day. 5 Active cyanocobalamin (VITAMIN B-12) 1,000 mcg tablet Take 1 tablet (1,000 mcg total) by mouth 1 (one) time each day. 5 Active cetirizine (ZyrTEC) 10 mg tablet TAKE ONE TABLET BY MOUTH EVERY DAY 30 tablet 5 5 Active PARoxetine (PAXIL) 30 mg tablet Take 1 tablet (30 mg total) by mouth 1 (one) time each day in the morning. 30 each 5 5 Active fluticasone propionate (FLONASE) 50 mcg/actuation nasal spray INHALE 2 SPRAYS IN EACH NOSTRIL ONCE DAILY 16 g 5 5 Active losartan (COZAAR) 100 mg tablet Take 1 tablet (100 mg total) by mouth 1 (one) time each day. 30 each 5 5 05/26/19 26 Active oxyCODONE-aceta minophen (PERCOCET) 10-325 mg per tabletIndicatio ns:Psoriatic arthritis ([facility] V24, [facility] V28) Take 1 tablet by mouth every 6 (six) hours if needed for moderate pain for up to 28 days. for pain Max Daily Amount: 4 tablets 112 tablet 5 12/28/19 25 Active zolpidem (AMBIEN) 5 mg tablet Take 1 tablet (5 mg total) by mouth at bedtime as needed for sleep for up to 28 days. for insomnia Max Daily Amount: 5 mg 28 tablet 5 01/16/20 25 Active oxyCODONE-aceta minophen (PERCOCET) 10-325 mg per tabletIndicatio ns:Psoriatic arthritis ([facility] V24, [facility] V28) Take 1 tablet by mouth every 6 (six) hours if needed for moderate pain for up to 28 days. for pain Max Daily Amount: 4 tablets 112 tablet 5 11/29/19 25 Discontinu ed(Reorder ) zolpidem (AMBIEN) 5 mg tablet Take 1 tablet (5 mg total) by mouth at bedtime as needed for sleep for up to 28 days. for insomnia Max Daily Amount: 5 mg 28 tablet 5 12/18/19 25 Discontinu ed(Reorder ) Active Problems Problem Noted Date Diagnosed Date Depression 12/14/2023 Hypertension 12/14/2023 Psoriatic arthritis ([facility] V24, [facility] V28) 0 03/22/2020 Overview (12/14/2023): 02/2020: [...] Encounters Date Type Department Care Team Description 11/26/2024 2:30 PM EDT Office Visit Adult Medicine [address] [phone] Diane Richardson PA Primary hypertension (Primary Dx); Bilateral hearing loss, unspecified hearing loss type 11/26/2024 10:15 AM EDT Office Visit Orthopedic Surgery [address] [phone] Jonathan Harp, DPM Metatarsalgia of left foot (Primary Dx); Metatarsalgia of right foot; Contracture of joint of right foot; Acquired hallux valgus of left foot; Dermatophytosis of nail; Acquired hallux valgus of right foot; Contracture of joint of left foot; Hammer toe of left foot; Pain in toe of left foot; Pain in toe of right foot; Corns and callosities; 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]; Acquired hammer toe of right foot; Difficulty walking 10/28/2024 9:45 AM EDT Office Visit Adult Medicine [address] [phone] Diane Richardson PA Primary hypertension (Primary Dx); Mixed hyperlipidemia; Impaired fasting glucose; Hyperthyroidism, subclinical; Vitamin D deficiency; B12 deficiency; Anxiety and depression; Primary insomnia; Medical marijuana use; Psoriatic arthritis ([facility] V24, [facility] V28); Encounter for long-term current use of medication; Age-related osteoporosis without current pathological fracture; Dizziness; Right ear impacted cerumen 10/23/2024 Telephone Adult Medicine [address] [phone] Sherman Johnson PA from Last 3 Months Immunizations Immunization Administration Dates Next Due Influenza Quadravalent, MDCK [...] CHOLECYSTECTOMY APPENDECTOMY PROCEDURE: HISTORICAL APPENDECTOMY SECTION PROCEDURE: UT DELIVERY ONLY COLONOSCOPY 2006 PROCEDURE: HISTORICAL COLONOSCOPY; COMMENT: reportedly normal ROTATOR CUFF REPAIR approx 2004 PROCEDURE: HISTORICAL ROTATOR CUFF REPAIR; COMMENT: bilateral TOTAL KNEE ARTHROPLASTY 2010 PROCEDURE: HISTORICAL TOTAL KNEE REPLACE; COMMENT: right CATARACT EXTRACTION PROCEDURE: HISTORICAL CATARACT REMOVAL; COMMENT: bilateral OTHER SURGICAL HISTORY PROCEDURE: UT RADIAL KERATOTOMY; COMMENT: right Medical History Medical [...] ty (BMI 30.0-34.9) Psoriasis DX:Psoriasis Psoriatic arthritis ([facility] V24, [facility] V28) 03/22/2020 DX:Psoriatic arthritis ([facility]) Solitary cyst of breast DX:Solit brittanie cyst [...] x2, healthy Brother 3 Father (Age 65) [place] in 70's Maternal Grandfather Maternal Grandmother Mother [...] drink = 0.6 oz pur e alcohol) Housing Instability Answer Date Recorde d Are you worried that in the next 2 months you may not have stable housing? No 10/28/2024 Food Access & Nutrition Answer Date Rec orded Do you have access to a vari ety of food including fruits and vegetables? Yes 10/28/2024 Health Literacy Answer Date Recorded How often do you need to hav e someone help you when you read instructions, pamphlets, or other written material from your doctor or pharmacy? Never 10/28/2024 Caregiver: How often do you need to have someone help you when you read instructions, pamphlets, or other written material from your doctor or pharmacy? Not on file 10/28/2024 Financial Risk Answer Date Recorded How hard is it for you to pa y for the very basics like food, housing, medical care, and air conditioning / heating? Not very hard 10/28/2024 Transportation Answer Date Recorded Has the lack of transportati on kept you from meetings, work, or from getting things needed for daily living? No Has the lack of transportati on kept you from medical appointments or from getting medications? No 10/28/2024 Social Isolation Answer Date Recorded How often do you feel lonely or isolated from th ose around you? Never 10/28/2024 Food Risk Answer Date Recorded Within the past 12 months we worried whether our food would run out before we got money to buy more. Never true 10/28/2024 Within the past 12 months th e food we bought just didn't last and we didn't have money to get more. Never true 10/28/2024 Dependent Care Answer Date Recorded Do you need help finding or paying for care for your loved ones. For example, early childhood services coordinator or elderly care for an older adult? No 10/28/2024 Education Answer Date Recorded Do you think completing more education or training, like finishing a GED, going to college, or learning a trade, would be helpful for you? No 10/28/2024 Employment and Income Answer Date Recor ded During the last four weeks, have you been actively looking for work? No 10/28/2024 Living Situation Answer Date Recorded What is your living situation? Unrecognized valu e 10/28/2024 Comments No Sex and Gender Information Value Date Recorded Sex Assigned at Not on file Legal Sex Female 12:50 AM EST Gender Identity Not on file Sexual Orientation Not on file Obstetrics History Last Filed Vital Signs Vital Sign Reading Time Taken Comments Blood Pressure 152/62 11/26/2024 2:49 PM EDT no cp no sob will recheck Pulse 83 11/26/2024 2:49 PM EDT Temperature 36.6 C (97.9 F) 11/26/2024 2:49 PM EDT Respiratory Rate 13 11/26/2024 2:49 PM EDT Oxygen Saturation 97% 11/26/2024 2:4 9 PM EDT Inhaled Oxygen Concentration - - Weight 70.3 kg (155 lb) 11/26/2024 2:49 PM EDT Height 157.5 cm (5' 2 ) 11/26/2024 2:49 PM EDT Body Mass Index 28.35 11/26/2024 2:49 PM EDT Plan of Treatment Upcoming Encounters Date Type Department Care Team (Late st Contact Info) Description 01/07/2025 11:00 AM EST Office Visit Adult Medicine [address] [phone] Diane Richardson PA [address] [place], [place] 01/28/2025 10:45 AM EST Office Visit [address] [phone] Sherman Johnson PA [address] [place] [phone] 02/24/2025 10:30 AM EST Office Visit Orthopedic Surgery - [place] [address] [phone] Jonathan Harp, DPM [address] [phone] Health Maintenance Due Date Last Done Comments RSV Immunization Adult Patients (1 - 1-dose 75+ series) 2017 Medicare Annual Wellness Visit 01/29/2022 Zoster Vaccines (2 of 2) 07/14/2022 05/19/2022 COVID-19 Vaccine ( - season) 2024 01/07/2021, 04/30/2020, 04/03/2020 Influenza Vaccine (#1) 2024 , 12/13/2022, 01/03/2022, Additional history exists Hypertension/CHF/CAD Annual BMP Blood Test 04/10/2025 04/10/2024, 12/25/2023, 09/06/2022 Falls Risk Assessment 10/28/2025 10/28/2024 , 10/28/2024, 07/25/2023 Social Influencers of Health Screening 10/28/2025 10/28/2024 Osteoporosis Screening (Bone Density Screening) 05/10/2028 05/10/2018 Cholesterol Screening (Lipid Panel) 04/10/2029 04/10/2024, 09/07/2023, 09/07/2023 Pneumococcal Vaccine: 50+ Years Completed 06/04/2014, 12/16/2010 Depression Screening Completed 10/28/2024, 07/25/19 DTaP,Tdap,and Td Vaccines Discontinued HIB Vaccines Aged Out No longer eligi [...] Procedure Name Priority Date/Time Associated Diagnosis Comments ECG 12-LEAD TRACING ONLY Routine 10/28/2024 12:24 PM EDT Dizziness COMPREHENSIVE METABOLIC PANEL Routine 04/10/2024 1:19 PM [...] pathological fracture, unspecified osteoporosis type Psoriatic arthritis ([facility] V24, [facility] V28) Vitamin D deficiency Fall, initial encounter Rib injury Buttock pain DEPRESSION SCREENING Routine 07/25/2023 FALLS RISK ASSESSMENT Routine 07/25/2023 DXA BONE DENSITY STUDY 1+ SITS AXIAL SKEL Routine 05/10/2018 11:23 AM EDT Encounter for screening for osteoporosis from Last 3 Months or Most Recently Relevant to Health Maintenance Results * ECG 12 lead Tracing Only (10/28/2024 12:24 PM EDT) Impressions Nicky Davis MA - 10/28/2024 12:24 PM EDT EKG done today reveals sinus rhythm with a heart rate of 66 bpm, atrial premature complex, no acute ST elevations. Reviewed with Dr. Pelletier. us Diane Dylan WRIGHT ECG ORDERABLES Final Result * (ABNORMAL) Lipid panel with reflex to direct LDL (04/10/2024 1:19 PM EST) Cholesterol 191 0 - 200 mg/dL LAB CHEMISTRY METHOD 04/10/2024 4:58 PM [facility] Triglycerides 164(H) 0 - 150 mg/dL LAB CHEMISTRY METHOD 04/10/2024 4:58 PM [facility] HDL 63 >=40 mg/dL LAB CHEMISTRY METHOD 04/10/2024 4:58 PM [facility] LDL Calculated 95 0 - 100 mg/dL LAB CHEMISTRY METHOD 04/10/2024 4:58 PM [facility] VLDL Cholesterol J Carlos 32.8 mg/dL LAB CHEMISTRY METHOD 04/10/2024 4:58 PM [facility] Non HDL Chol. (LDL+VLDL) 128 <145 mg/dL LAB CHEMISTRY METHOD 04/10/2024 4:58 PM [facility] Chol/HDL Ratio 3.0 0.0 - 4.4 LAB CHEMISTRY METHOD 04/10/2024 4:58 PM [facility] Blood Venous blood specimen / Unknown Venipuncture / Unknown 04/10/2024 1:19 PM EST 04/10/2024 1:19 PM EST Sherman WRIGHT LAB BLOOD ORDERABLES Modesta l Result [facility] [address] [place] [address], [place] [phone] * (ABNORMAL) Comprehensive metabolic panel (04/10/2024 1:19 PM EST) Sodium 136 133 - 145 mmol/L LAB CHEMISTRY METHOD 04/10/2024 4:58 PM [facility] Potassium 4.3 3.5 - 5.5 mmol/L LAB CHEMISTRY METHOD 04/10/2024 4:58 PM [facility] Chloride 100 96 - 110 mmol/L LAB CHEMISTRY METHOD 04/10/2024 4:58 PM [facility] CO2 29 21 - 32 mmol/L LAB CHEMISTRY METHOD 04/10/2024 4:58 PM [facility] Anion Gap 7 3 - 11 LAB CHEMISTRY METHOD 04/10/2024 4:58 PM [facility] Glucose 131(H) 70 - 100 mg/dL LAB CHEMISTRY METHOD 04/10/2024 4:58 PM [facility] BUN 10 5 - 25 mg/dL LAB CHEMISTRY METHOD 04/10/2024 4:58 PM [facility] Creatinine 0.66 0.50 - 1.10 mg/dL LAB CHEMISTRY METHOD 04/10/2024 4:58 PM [facility] eGFR 88 >=60 mL/min/1. 73m2 LAB CHEMISTRY METHOD 04/10/2024 4:58 PM [facility] Comment:Calculation based on the Chronic Kidney Disease Epidemiology Collaboration (CKD-EPI) equation refit without adjustment for race. BUN/Creatinine Ratio 15.2 LAB CHEMISTRY METHOD 04/10/2024 4:58 PM [facility] Calcium 9.7 8.5 - 10.5 mg/dL LAB CHEMISTRY METHOD 04/10/2024 4:58 PM [facility] AST (SGOT) 13 10 - 42 unit/L LAB CHEMISTRY METHOD 04/10/2024 4:58 PM [facility] ALT (SGPT) 20 10 - 60 unit/L LAB CHEMISTRY METHOD 04/10/2024 4:58 PM [facility] Alkaline Phosphatase 87 42 - 121 unit/L LAB CHEMISTRY METHOD 04/10/2024 4:58 PM [facility] Total Protein 7.6 6.0 - 8.0 g/dL LAB CHEMISTRY METHOD 04/10/2024 4:58 PM [facility] Albumin 4.2 3.2 - 5.0 g/dL LAB CHEMISTRY METHOD 04/10/2024 4:58 PM [facility] Total Bilirubin 0.8 0.0 - 1.4 mg/dL LAB CHEMISTRY METHOD 04/10/2024 4:58 PM [facility] Blood Venous blood specimen / Unknown Venipuncture / Unknown 04/10/2024 1:19 PM EST 04/10/2024 1:19 PM EST Sherman WRIGHT LAB BLOOD ORDERABLES Modesta l Result [facility] [address] [place] [address], * Falls Risk Assessment (07/25/2023) [facility] Falls Risk Assessment Abstracted Historical Provider HEALTH MAINTENANCE Final Result * Depression Screening (07/25/2023) Depression Screening Abstracted us Historical Provider HEALTH MAINTENANCE Final Result * DXA BONE DENSITY STUDY 1+ SITS AXIAL SKEL (05/10/2018 11:23 AM EDT) Anatomical Region Laterality Modality Bone Densitometr y 05/02/2018 9:39 AM EDT Narrative 05/10/2018 4:52 PM EDT BONE DENSITY (DEXA) Lumbar Spine T-score is [...] to have osteoporosis by WHO criteria. The [facility] Department of Internal Medicine recommends using National [...] alternative screening schedule based on celine Mcdaniel., [facility] March 10, 2011 for patients with osteopenia [...] to have osteoporosis by WHO criteria. [facility] Department of Internal Medicinerecommends using National Osteoporosis [...] alternative screening schedule based on celine Mcdaniel., [place] for patients with osteopenia (based on hip BMD T-score) is as follows: * advanced osteopenia (T scores -2.00 to -2.49), BMD testing every year * moderate osteopenia (T scores -1.50 to -1.99), BMD testing every 5years mild osteopenia or normal BMD (T scores -1.50 and higher), BMD testingevery 15 years Sherman WRIGHT IMNelson DXA PROCEDURES Final Result from Last 3 Months or Most Recently Relevant to Health [place] [id number] [employer] MEDICARE ADVANTAGE MEDICAID [place] [facility] Care Teams Curling Machine 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
--- OUTSIDE RECORDS SUMMARY | 2024-12-26 13:58 | XMS_ITS ---
[facility] Care Team Organization Name Specialty Phone Email Start Date End Da te [facility] Sherman Newman Primary Care 12/28/2021
== END 2024-12-26 13:43 | disposition home or self-care (01) ==
PROVIDERS: Emergency Provider Student in an Organized Health Care Education/Training Program; PCP Physician Assistant Medical
DX: S20.219A Contusion of unspecified front wall of thorax, initial encounter (principal); W01.198A Fall on same level from slipping, tripping and stumbling with subsequent striking against other object, initial encounter; Y93.89 Activity, other specified; Y92.524 Gas station as the place of occurrence of the external cause; Y99.9 Unspecified external cause status; R07.89 Other chest pain; I10 Essential (primary) hypertension; M25.561 Pain in right knee; L40.9 Psoriasis, unspecified
CPT/HCPCS: 71250; 73564; 99283

== ENCOUNTER → 2024-12-26 10:28 | Outpatient (BNV) | payer MEDICARE, SELFPAY | PROVIDERS: PCP Physician Assistant Medical; Visit Provider Radiology Diagnostic Radiology | DX: S70.11XA Contusion of right thigh, initial encounter (principal) | CPT/HCPCS: 71250; 73564; 73700 ==

== ENCOUNTER 2024-12-26 19:22 | Emergency (ER) | payer MEDICARE, SELFPAY ==
[2024-12-26] VITALS (7 sets, daily range): BP systolic 158–180; BP diastolic 58–85; PULSE 78–106; RESP 14–20; TEMP 36.6–37.1; O2SAT 94–98; BMI 31.2
--- NOTE | ~2024-12-26 | CT_ITS ---
CLINICAL HISTORY: trauma CT right femur without contrast Comparison: None provided Findings: Bones: No acute fracture. Mild degenerative changes of the femoroacetabular joint. Right total knee arthroplasty. Small sclerotic bone island of the right acetabulum. Soft tissue: Soft tissue swelling/stranding with probable soft tissue hematoma of the medial distal femur measuring 9.4 x 3.7 x 7.8 cm. Other: None. IMPRESSION: 1. No acute fracture. 2. Presumed soft tissue hematoma at the medial aspect of the distal femur measuring up to 9.4 cm. This document has been electronically signed by: Heather Orellana MD on 12/27/2024 01:11:06
[2024-12-26 20:20] LABS: MANUAL DIFF FLAG NO
[2024-12-26 20:21] LABS: Hematocrit 32.8 % (37.0-47.0); Hemoglobin 11.7 g/dl (12.0-16.0); Imm Gran Abs Auto 0.03 X10*3/uL (0.00-0.03); Imm Gran Pct Auto 0.3 % (0.0-0.4); Lymphocytes Absolute Auto 1.1 X10*3/uL (1.2-4.9); Mean Corpuscular HGB Conc 35.7 g/dl (31.0-35.0); Mean Corpuscular Hemoglobin 34.0 pg (27.0-33.0); Mean Corpuscular Volume 95.3 fL (80.0-98.0); NRBC Abs Auto 0.000 X10*3/uL (0.0-0.012); NRBC Pct Auto 0.0 /100WBC (0.0-0.2); Platelet Count 255 X10*3/uL (160-400); Red Blood Count 3.44 X10*6/uL (4.20-5.50); White Blood Count 9.6 X10*3/uL (4.8-10.8)
[2024-12-26 20:37] LABS: Alanine Aminotransferase 9 U/L (0-31); Albumin Level 4.3 g/dL (3.5-5.0); Alkaline Phosphatase 67 U/L (39-117); Anion Gap 16 (12-20); Aspartate Amino Transferase 18 U/L (5-31); Blood Urea Nitrogen 10 mg/dL (9-16); COVID-19 Test Negative (Negative); Calcium 8.9 mg/dL (8.4-10.2); Carbon Dioxide 24 mmol/L (22-29); Chloride 103 mmol/L (96-108); Creatinine Clr Calc Pharmacy 62.3; Estimated Glomerular Filt Rate > 60; IDNOW Serial# 55D5AD1C; Magnesium 1.9 mg/dL (1.6-2.6); Potassium 3.4 mmol/L (3.3-5.1); Sodium 140 mmol/L (135-145); Total Protein 7.1 g/dL (6.5-8.0)
--- NOTE | 2024-12-26 20:57 | PC.NURSE ---
Patient reports beyond 10 out of 10 pain to right knee, right thigh. Swelling appears worse compared to assessment earlier today, extending to right thigh. Previously had right knee imaged. Hip, Pelvis, Femur imaging to be completed. Plan to medicate for pain, unable to tolerate ordered imaging at this time. Care ongoing by this RN.
[2024-12-26 21:09] LABS: INTERNATIONAL NORM RATIO 1.1 (0.9-1.1); Prothrombin Time 13.1 SEC (11.2-13.5)
--- NOTE | 2024-12-26 22:19 | ED.GENADULT ---
HPI - General Adult General Chief complaint: Extremity Problem Stated complaint: RT/KNEE INJURY Time Seen by Provider: 12/26/24 20:47 Source: patient, RN notes reviewed and old records reviewed Mode of arrival: EMS Limitations: no limitations History of Present Illness ED Provider: Adilson BOJORQUEZ narrative: 84-year-old female with a past medical history significant for hypertension, osteoporosis, right knee replacement 25 years ago, gout, anxiety, psoriasis presents for evaluation of right leg pain. Patient was actually seen here a few hours ago for right knee pain after a fall. She reports tripping over the curb She had negative x-ray of the right knee and was discharged with an Andrés wrap. She reports about an hour and a half after her discharge she woke up with severe pain going into her right mid thigh on the medial side. She was not prescribed any medications and not take any medications Her pain is unbearable to even light touch pain Denies any fevers, chills pain She denies any other additional falls. Denies any right hip pain Related Data Home Medications ?Medication ?Instructions ?Recorded ?Confirmed losartan 100 mg tablet 100 mg PO DAILY 12/27/24 12/27/24 oxycodone-acetaminophen 10 mg-325 1 tab PO Q6H PRN moderate pain 12/27/24 12/27/24 mg tablet paroxetine HCl 20 mg tablet 20 mg PO QAM 12/27/24 12/27/24 zolpidem 5 mg tablet 5 mg PO BEDTIME PRN insomnia 12/27/24 12/27/24 Previous Rx's ?Medication ?Instructions ?Recorded oxycodone 5 mg tablet 5 mg PO Q6H PRN pain #12 tabs 12/30/24 Allergies Allergy/AdvReac Type Severity Reaction Status Date / Time Penicillins (PENICILLINS) Allergy Severe ANAPHYLAXIS Verified 12/26/24 19:42 latex (LATEX) Allergy Unknown UNKNOWN Verified 12/26/24 19:42 ibuprofen (From Motrin) Allergy Swelling Verified 12/26/24 19:42 Review of Systems Constitutional: Constitutional: Denies body ache(s), Denies chills, Denies fever(s) and Denies headache(s) Eyes: Eyes: Denies blurry vision ENT: Denies vertigo, Denies dizziness and Denies headache(s) Cardiovascular: Cardiovascular: Denies chest pain and Denies dyspnea on exertion Respiratory: Respiratory: Denies cough and Denies dyspnea on exertion Gastrointestinal: Gastrointestinal: Denies abdominal pain Musculoskeletal: Musculoskeletal: Reports arthralgias, Reports joint swelling and Reports limited range of motion Integumentary/Breasts: Skin/Breast: Denies rash Neurologic: Denies vertigo, Denies dizziness and Denies headache(s) COUNT INCLUDES THE [facility] Past Medical History Medical History History of gout Arthritis Psoriasis HTN (hypertension) Surgical History History of right knee joint replacement H/O shoulder surgery Social History Social History Household Members Other:: lives alone Housing: Apartment Do you presently have visiting nurse or other home services: Yes (once a week) Alcohol intake: current Alcohol intake frequency: holidays/special occasions only Alcohol type: hard liquor Patient Tobacco Use Status: Never used Tobacco e-Cigarette/Vaping Use: Never Used Second Hand Smoke Exposure: No Advance Directives Date on File: 12/27/24 service: No Current occupational status: retired Current occupation: right handed Physical Exam ED Vital Signs: Vital Signs - 24 hr 12/30/24 05:43 12/30/24 09:54 12/30/24 12:32 Temperature 99.5 F 98.7 F Pulse Rate 98 110 H 106 H Respiratory Rate 20 20 Blood Pressure 128/55 L 139/48 L Pulse Oximetry 93 97 92 Oxygen Delivery Method Room Air Room Air 12/30/24 13:55 12/30/24 16:46 Temperature 98.7 F 98.3 F Pulse Rate 106 H 98 Respiratory Rate 20 16 Blood Pressure 139/48 L 139/48 L Pulse Oximetry 91 L 98 Oxygen Delivery Method Room Air Room Air BMI result Body Mass Index 31.2 Const General: no acute distress, alert and awake Nutritional Appearance: well nourished Orientation/consciousness: patient oriented x3 HENMT Head: Yes normocephalic and Yes atraumatic Eyes Eyelids: Yes eyelids normal Conjunctivae: conjunctivae normal Sclerae: sclerae normal Corneas: corneas normal Pupils: Equal, round and reactive pupils present EOM: EOMs intact bilaterally Neck Neck: Yes full ROM Resp Effort & Inspection: normal respiratory effort, able to speak in complete sentences and not labored Cardio Rate: regular rate Rhythm: regular rhythm Skin General skin exam: elasticity normal Neuro General: patient oriented x3 Cranial nerves: Yes CN's II-XII intact bilaterally, Yes Equal, round and reactive pupils present and Yes Bilaterally intact EOM present Cognition (Neuro): normal cognition Extrem Other: There is significant edema to the medial aspect of the right knee with ecchymosis. There is a small abrasion over the patella. The patient is exquisitely tender to palpation of the right knee and distal thigh. Base. She has no tenderness to the right hip. DP pulses are 2+ and equal Course Reevaluation(s) Reevaluation #1: The patient's CT scan confirms that there was no fracture of the femur distally or at the hip. The patient's pain is likely from a large hematoma of the distal thigh measuring up to 9.4 cm. At this time, she is still unable to ambulate given her significant pain, she will remain in the hospital overnight for a physical therapy and case management evaluation. She would likely need short-term rehab. I did repeat an H and H in her hemoglobin is stable at 11.1 and a repeat. Not anticoagulated, her initial hemoglobin was 11.7 so there was a slight drop. Vital signs remained stable. The patient would like to into her code status as DNR/DNI, this was witnessed by nursing staff, Rachel Joseph Time: 01:48 Reevaluation #2: Time: 08:54 Date: 12/28/24 Provider: ADRIANA Vergara Patient in physician observation for case management needs. No acute events reported overnight.? No current issues or complaints. VS stable. Physical therapy recommending short-term rehab. Case management consult pending. Will continue to monitor. 12/29/2024 1109 Veronica Jacob PA-C---> Observation continues. Case management continues to follow. Reevaluation #3: Time: 15:05 Date: 12/30/24 Provider: Thien Corbett PA-C Patient in physician observation for case management needs. No acute events reported overnight.? No current issues or complaints. VS stable. Patient will discharge to [facility] via S at 3:00 p.m. Will continue to monitor as we await transportation. Time: 15:05 Medications Administered Discontinued Medications Generic Name Dose Route Start Last Admin Trade Name Freq PRN Reason Stop Dose Admin Hydromorphone HCl 0.5 mg 12/26/24 22:09 12/26/24 22:21 Hydromorphone Hcl 0.5 Mg/0.5 Ml Syringe IVPUSH 12/26/24 22:10 0.5 mg ONCE ONE Administration Protocol Sodium Chloride 1,000 mls @ 999 mls/hr 12/26/24 21:00 12/26/24 22:21 Ns IV 12/26/24 22:00 Infused .Q1H1M CRUZITO Infusion Losartan Potassium 100 mg 12/28/24 09:00 12/30/24 09:30 Losartan Potassium 50 Mg Tablet PO 100 mg DAILY CRUZITO Administration Protocol Morphine Sulfate 4 mg 12/26/24 20:58 12/26/24 21:11 Morphine Sulfate 4 Mg/Ml Cartridge IVPUSH 12/26/24 20:59 4 mg ONCE ONE Administration Protocol Morphine Sulfate 4 mg 12/27/24 09:35 12/27/24 09:42 Morphine Sulfate 4 Mg/Ml Cartridge IVPUSH 12/27/24 09:36 4 mg ONCE ONE Administration Protocol Ondansetron HCl 4 mg 12/26/24 20:58 12/26/24 21:11 Ondansetron Hcl 4 Mg/2 Ml Vial IVPUSH 12/26/24 20:59 4 mg ONCE ONE Administration Oxycodone HCl 5 mg 12/27/24 14:45 12/27/24 14:57 Oxycodone Hcl Immed Release 5 Mg Tablet PO 12/27/24 14:46 5 mg ONCE ONE Administration Oxycodone HCl 10 mg 12/27/24 18:42 12/30/24 11:55 Oxycodone Hcl Immed Release 5 Mg Tablet PO 10 mg Q6H PRN Administration Pain, Severe (Pain Scale 7-10) Paroxetine HCl 20 mg 12/28/24 09:00 12/30/24 09:30 Paroxetine Hcl 20 Mg Tablet PO 20 mg DAILY CRUZITO Administration Zolpidem Tartrate 5 mg 12/27/24 18:37 12/29/24 21:52 Zolpidem Tartrate 5 Mg Tablet PO 5 mg BEDTIME PRN Administration Insomnia Medical Decision Making Medical Decision Making MDM Narrative: 82-year-old female with a past medical history as above presents for evaluation of right leg pain. She was recently discharged after an x-ray of the right knee. She appears to have a large hematoma on exam. There was no evidence of compartment syndrome, she has no numbness, she is able to wiggle all her toes. She has good pulses. However she has significant tenderness on exam, I am concerned for a missed fracture either with referred pain from a hip patient says that she has had or a more proximal mid femur. Plan to medicate the patient so he can get a better exam and determine which imaging would be appropriate Differential Diagnosis Differential Diagnoses: The differential diagnosis associated with the presentation includes Contusion Hematoma Distal femur fracture Right hip fracture Pelvic fracture Lab Data MDM Lab Attestation statement: I reviewed the patient's lab results. No leukocytosis. The patient does have a mild anemia with a hemoglobin 11.7 and a hematocrit of 32.8. She does have a slight left shift of 81.6% neutrophils. No significant chemistry abnormalities warranting intervention 12/27/24 01:32 12/26/24 20:15 Labs: Lab Results 12/26/24 12/27/24 Range/Units 20:15 01:32 WBC 9.6 (4.8-10.8) X10*3/uL RBC 3.44 L (4.20-5.50) X10*6/uL Hgb 11.7 L 11.1 L (12.0-16.0) g/dl Hct 32.8 L 32.4 L (37.0-47.0) % MCV 95.3 (80.0-98.0) fL MCH 34.0 H (27.0-33.0) pg MCHC 35.7 H (31.0-35.0) g/dl RDW 11.3 (11.0-16.0) % Plt Count 255 (160-400) X10*3/uL MPV 10.9 (9.4-12.3) fL Immature Gran % (Auto) 0.3 (0.0-0.4) % Neut % (Auto) 81.6 H (45-73) % Lymph % (Auto) 11.8 L (20-40) % Wetzel % (Auto) 5.3 (2-11) % Eos % (Auto) 0.4 (0-4) % Baso % (Auto) 0.6 (0-2) % Lymph # (Auto) 1.1 L (1.2-4.9) X10*3/uL Wetzel # (Auto) 0.5 (0.1-1.2) X10*3/uL Eos # (Auto) 0.0 (0.0-0.4) X10*3/uL Baso # (Auto) 0.1 (0.0-0.2) X10*3/uL Abs Immat Gran (auto) 0.03 (0.00-0.03) X10*3/uL Absolute Neuts (auto) 7.9 (2.0-8.3) x10*3/uL Absolute Nucleated RBC 0.000 (0.0-0.012) X10*3/uL Nucleated RBC % (auto) 0.0 (0.0-0.2) /100WBC PT 13.1 (11.2-13.5) SEC INR 1.1 (0.9-1.1) Sodium 140 (135-145) mmol/L Potassium 3.4 (3.3-5.1) mmol/L Chloride 103 (96-108) mmol/L Carbon Dioxide 24 (22-29) mmol/L Anion Gap 16 (12-20) BUN 10 (9-16) mg/dL Creatinine 0.67 (0.5-1.4) mg/dL Estim Creat Clear Calc 62.3 Estimated GFR > 60 Random Glucose 170 H (60-115) mg/dL Calcium 8.9 D (8.4-10.2) mg/dL Magnesium 1.9 (1.6-2.6) mg/dL Total Bilirubin 0.6 (0.0-1.0) mg/dL AST 18 (5-31) U/L ALT 9 (0-31) U/L Alkaline Phosphatase 67 (39-117) U/L Total Protein 7.1 (6.5-8.0) g/dL Albumin 4.3 (3.5-5.0) g/dL COVID-19 (GEORGE) Negative (Negative) COVID-19 Clin Com See Note Discharge Plan Discharge Clinical Impression: Hematoma of right thigh Qualifiers: Encounter type: initial encounter Qualified Code(s): S70.11XA - Contusion of right thigh, initial encounter Patient Disposition: Xfer Inpatient Rehab Fac Transfer Details: TO: DR LUIS DANIEL MAN ACCEPTING Prescriptions: New oxycodone 5 mg tablet 5 mg PO Q6H PRN (Reason: pain) Qty: 12 0RF Rx Instructions: Partial Fill upon patient request. No Action losartan 100 mg tablet 100 mg PO DAILY paroxetine HCl 20 mg tablet 20 mg PO QAM zolpidem 5 mg tablet 5 mg PO BEDTIME PRN (Reason: insomnia) oxycodone-acetaminophen 10-325 mg tablet 1 tab PO Q6H PRN (Reason: moderate pain) Referrals: Rosanne Evans [Outside] Referral Note: [phone] Sherman Johnson PA [Primary Care Provider, Internal Medicine] Interventions: ED Discharge Assessment Last Done: 12/30/24 16:46 Discharge Date/Time: 12/30/24 16:47 Print Language: Polish
[2024-12-27 01:36] LABS: Hematocrit 32.4 % (37.0-47.0); Hemoglobin 11.1 g/dl (12.0-16.0)
--- NOTE | 2024-12-27 01:45 | PC.NURSE ---
At bedside with ADRIANA Mallory patient requesting DNR/DNI status. stated her HCP knows this also
[2024-12-27 06:00] VITALS: BP 148/57; PULSE 99; RESP 16; TEMP 37.2; O2SAT 97
--- NOTE | 2024-12-27 07:09 | PC.NURSE ---
This RN assumed care of patient @ 0700 Patient eating breakfast C/O right knee pain rated 7/10 +CMS limited ROM Pain on light touch PAtient awaiting PT/CM
[2024-12-27 07:15] VITALS: BP 117/66; PULSE 105; RESP 13; TEMP 37; O2SAT 98
--- NOTE | 2024-12-27 12:03 | PC.NURSE ---
RN to RN with Red on phone. patient has just had PT at bedside.
--- NOTE | 2024-12-27 13:25 | MHC.CM.ED ---
Received case management consult overnight. Patient came to the ER due to knee pain. Work up essentially negative. Physical therapy eval completed. Short term rehab is recommended. Met with patient in regards to discharge planning. Patient lives alone in Senior Housing, ambulates independently and has laundry assistance once a week from [facility]. PCP verified. Patient is declining [facility] at this time and is requesting to go home with [facility]. Patient has been active with them in the past. Referral made to [facility]. Patient's friend will transport her home.
--- NOTE | 2024-12-27 13:28 | MHC.CM.ED ---
Met with patient to complete HCP. HCP completed, signed and witnessed. Original given to patient. Copy placed in chart. Patient is now second guessing if she should go to [facility]. Patient agreeable to referral being broadcasted locally to discuss bed offers. Referral made in [facility]. Bed offers malcom be discussed with patient. Continue to monitor for d/c neesd.
[2024-12-27 13:42] VITALS: BP 156/67; PULSE 94; RESP 17; TEMP 36.4; O2SAT 98
[2024-12-27] MEDS: oxyCODONE HCl Immed Release 5 MG TABLET PO (14:57)
--- NOTE | 2024-12-27 15:10 | PC.NURSE ---
Pt has been able to ambuate to BR with 1 assist and walker. However she tires and has requested a WC. is Axox3. abrasion noted right knee.
--- NOTE | 2024-12-27 18:08 | MHC.CM.ED ---
Pt has accepted a bed offer at [facility]. Facility will go for auth. Pt aware that she may be here through the weekend, pending insurance auth. Pt is agreeable.
[2024-12-27 18:20] VITALS: BP 135/66; PULSE 94; RESP 16; TEMP 37.1; O2SAT 97
--- NOTE | 2024-12-27 20:01 | PHA.MEDREC ---
Addendum entered by Meeta Vidales 12/27/24 20:31: Patient is taking Paroxetine 20 mg. Per nurse, patient states she did not start the Paroxeitine 30 mg because it was called in by a provider that she normally doesn't see. Addendum entered by Virgil Obando RP 12/27/24 20:08: Reviewed by [facility] Original Note: Pharmacy Consult ? Medication Reconciliation Pharmacy has reviewed the medication reconciliation done by nursing. Claims match med list.
--- NOTE | 2024-12-27 20:45 | PC.NURSE ---
Assumed care of pt, presents with right knee pain s/p tripping over curb, no headstrike, no blood thinners, pt was discharged and shortly returned to ED due to pain. Pt aaox4, nad, pt has no complaints of pain at this time. Per CM note, pt has accepted a bed at [facility], currently pending authorization from insurance
--- NOTE | 2024-12-27 22:06 | MHC.EDTECH ---
Assisted pt to bathroom in wheelchair. Pt back in bed. Bed alarm on and call valdes within reach.
[2024-12-27 23:23] VITALS: BP 148/67; PULSE 99; RESP 18; O2SAT 99
[2024-12-27] MEDS: oxyCODONE HCl Immed Release 5 MG TABLET 10 MG PO (23:29)
[2024-12-28] VITALS (7 sets, daily range): BP systolic 108–131; BP diastolic 55–60; PULSE 80–109; RESP 16–18; TEMP 36.6–37.2; O2SAT 94–97
--- NOTE | 2024-12-28 10:35 | PC.NURSE ---
Pt resting quietly in bed. Ate breakfast independently. Assisted to bathroom via wheelchair. Took morning meds whole. NAD. VSS. Plan of care ongoing
[2024-12-28] MEDS: oxyCODONE HCl Immed Release 5 MG TABLET 10 MG PO (13:02)
--- NOTE | 2024-12-28 20:31 | PC.NURSE ---
pt alert and oriented x4. VS as noted. pt c/o 4-810 pain to R knee and rib. medicated as per mar and ice packs utilized for increased pain control with + effect. R knee swollen and bruised, blister noted to knee with xeroform/pink foam pending arrival of xeroform. Pt sitting at edge of bed for meals and S+P to wheelchair to use restroom. plan of care ongoing.
--- NOTE | 2024-12-28 20:49 | PC.NURSE ---
Addendum entered by Tamar Rodriguez RN 12/28/24 22:22: Patient transferred by receiving RN from [facility] to [facility] in stable condition with all belongings at ~22:23. Addendum entered by Tamar Rodriguez RN 12/28/24 22:13: Report called to [facility] ED receiving HUMBERTO Baron at 22:09. On present rounding, this patient remains in stable condition, evening VSS. Patient currently resting in bed with eyes closed. Breathing observed even and unlabored breathing without distress, RR 16. Original Note: Assumed care of this patient 19:00 hour. Pt is A&Ox4, pleasant. Denies pain, chest pain, sob, n/v, or other acute issues at this time. Soft intact bruise that appears to be healing/evolving to right inner thigh. Intact blister noted just above right knee. Xeroform and pink foam gently placed over intact blister to promote integrity of skin. +dp and pt pulses, +cms. Mild pitting edema to right knee. Breathing is even and unlabored without distress on room air. Pt repositions herself in the bed independently. MAEE. Abdomen soft, non-tender. Denies urge to void at this time or dysuria. Bed alarm on and safety measures in place. Call valdes within reach and educated on use. Plan of care ongoing.
--- NOTE | 2024-12-28 22:09 | PC.NURSE ---
report received from overflow HUMBERTO Bell, pt will be moved to ed8
--- NOTE | 2024-12-28 22:33 | PC.NURSE ---
20 g IV present in the right forearm
--- NOTE | 2024-12-28 22:49 | PC.NURSE ---
pt was brought over to ed8 from overflow. was given PRN per mar per pt request by genna PAUL. pt requested to use restroom. commode brought into room, pt did well stand and pivot to commode with minimal assist. call valdes within reach.
[2024-12-29 06:14] VITALS: BP 114/59; PULSE 92; RESP 16; TEMP 36.6; O2SAT 96
[2024-12-29 08:58] VITALS: BP 158/57; PULSE 91; RESP 18; O2SAT 95
[2024-12-29] MEDS: oxyCODONE HCl Immed Release 5 MG TABLET 10 MG PO ×2 (09:00→21:17)
[2024-12-29 17:35] VITALS: BP 109/50; PULSE 102; RESP 17; O2SAT 93
[2024-12-29 20:38] VITALS: BP 140/50; PULSE 99; RESP 16; O2SAT 98
--- NOTE | 2024-12-29 20:59 | PC.NURSE ---
pt alert and oriented, pleasant and cooperative with care. Pt medicated for pain with oxy with + effect. Pt slept intermittently throughout the day. ice packs and repositioning provided for further comfort, heels floated. pt offloaded from buttocks. dsg c/d/i to blister on R inner knee.
--- NOTE | 2024-12-30 03:23 | PC.NURSE ---
Pt voided in BSC x1
[2024-12-30 05:43] VITALS: BP 128/55; PULSE 98; RESP 20; TEMP 37.5; O2SAT 93
--- NOTE | 2024-12-30 06:25 | PC.NURSE ---
Assumed care of pt at 2300. Pt A+Ox4. Able to follow commands. Pt taken to commode to void x1 with 2 staff assist. Right knee swollen and bruised. Dressing CDI. Pt denies pain at this time. Pt resting in bed with call valdes in reach. High fall risk precautions in place. See flowsheets and MAR for more information. Awaiting disposition. Plan of care continues.
[2024-12-30 09:54] VITALS: PULSE 110; O2SAT 97
--- NOTE | 2024-12-30 10:13 | MHC.CM.ED ---
Addendum entered by Mimi Mckeon 12/30/24 13:24: Insurance auth has been obtained by [facility]. Patient can leave at 3pm. Rodrick CISNEROS booked. Med nec with chart. Patient, Rhianna PAUL and Thien bell. Patient's niece/HCP, Gwen also made aware via telephone at [phone] Original Note: Patient remains in ER overflow. [facility] is in the process of obtaining ins auth. Ins requesting updated PT note. Updated note sent to [facility]. Continue to monitor for d/c needs.
[2024-12-30] MEDS: oxyCODONE HCl Immed Release 5 MG TABLET 10 MG PO (11:55)
[2024-12-30 12:32] VITALS: BP 139/48; PULSE 106; RESP 20; TEMP 37.1; O2SAT 92
[2024-12-30 13:55] VITALS: BP 139/48; PULSE 106; RESP 20; TEMP 37.1; O2SAT 91
[2024-12-30 16:46] VITALS: BP 139/48; PULSE 98; RESP 16; TEMP 36.8; O2SAT 98
== END 2024-12-30 16:47 ==
PROVIDERS: Physician Assistant; Physician Assistant Medical; Emergency Provider Emergency Medicine; PCP Physician Assistant Medical
DX: S70.11XA Contusion of right thigh, initial encounter (principal); M79.604 Pain in right leg; I10 Essential (primary) hypertension; L40.9 Psoriasis, unspecified; M25.561 Pain in right knee; R26.81 Unsteadiness on feet; R11.0 Nausea; W19.XXXA Unspecified fall, initial encounter; X58.XXXA Exposure to other specified factors, initial encounter; Y93.9 Activity, unspecified; Y92.9 Unspecified place or not applicable; Y99.9 Unspecified external cause status; Z79.899 Other long term (current) drug therapy; Z11.52 Encounter for screening for COVID-19
CPT/HCPCS: 36415; 71250; 73564; 73700; 80053; 83735; 85014; 85018; 85025; 85610; 87635; 96361; 96374; 96375; 96376; 97162; 97530; 99283; 99285; J1171; J2270; J2405